=== PATIENT | female | born 1945 | race Caucasian/White ===

== ENCOUNTER → 2017-10-06 | Outpatient (CLI) | payer BC | END | disposition home or self-care (01) | LOC: C.PAPS 09:48 | PROVIDERS: ATTEND Obstetrics & Gynecology | DX: Z12.4 Encounter for screening for malignant neoplasm of cervix (principal) ==

== ENCOUNTER 2022-12-06 13:04 | Inpatient (IN) ==
[2022-12-06 16:13] LABS: Hematocrit (blood only) 38.9 % (37.0-47.0); Hemoglobin 13.8 g/dl (12.0-16.0); Mean Corpuscular Hemoglobin 30.5 pg (25.0-34.0); Mean Corpuscular Hgb Conc 35.5 g/dL (32.0-36.0); Mean Corpuscular Volume 86.1 fL (80.0-100.0); Mean Platelet Volume 10.3 fL (9.4-12.4); Platelet Count 128 K/uL (130-400); RDW Coefficient of Variation 11.6 % (11.5-14.5); RDW Standard Deviation 36.1 fL (36.4-46.3); Red Blood Count 4.52 M/uL (4.20-5.40); White Blood Count 4.37 K/ul (4.8-10.8)
--- NOTE | 2022-12-06 16:20 | CT Scan Report ---
CT SCAN OF THE BRAIN WITHOUT IV CONTRAST CLINICAL HISTORY: Fall. Head injury. COMPARISON STUDY: No priors. TECHNIQUE: Unenhanced axial CT scan of the brain is performed from the vertex to the skull base. A do se lowering technique was utilized adhering to the principles of ALARA. CT DOSE: 614.27 mGy.cm FINDINGS: Brain parenchyma: There is age-related involutional change noting moderate to advanced subcortical an d periventricular microangiopathic disease. There is no hemorrhage, mass effect, or evidence of acute territorial ischemia by CT criteria. Taylor-white matter differentiation is preserved. No extra-axial fluid collection is seen. Ventricles, sulci, cisterns: Prominent secondary to involutional change. Intracranial vasculature: There is atherosclerotic calcification of the cavernous carotid and vertebr al arteries. Calvarium: The skeletal structures are osteopenic. No depressed skull fracture is seen. Sinuses and mastoids: The visualized paranasal sinuses are clear. The mastoid air cells are well pneu matized. Orbits: The bony orbits are grossly intact. IMPRESSION: There is no hemorrhage, mass effect, or evidence of acute territorial ischemia by CT alyse haas. ACT 112: Negative or not required by law. Electronically signed by: Quintin Chauhan M.D. 12/06/2022 4:19 PM
[2022-12-06 16:24] LABS: Albumin Globulin Ratio 1.1 (0.9-2); Albumin Level 3.8 gm/dl (3.4-5.0); BUN Creatinine Ratio 29.5 (10-20); Bilirubin,Total 0.6 mg/dl (0.2-1.0); Calcium 8.5 mg/dl (8.6-10.3); Creatinine Clr Calc Pharmacy 69.1 ml/min; Est GFR (African American) 100.6 ml/min; Est GFR (Non-African American) 86.8 ml/min; Globulin 3.4 gm/dl (2.5-4.0); Potassium 3.3 mmol/L (3.5-5.1); Total Protein 7.2 gm/dl (6.0-8.3)
[2022-12-06 16:29] LABS: Basophils # (auto) 0.02 K/uL (0-0.2); Basophils % (auto) 0.5 %; Immature Granulocytes # (auto) 0.02 K/uL (0.01-0.20); Immature Granulocytes % (auto) 0.5 %; Lymphocytes # (auto) 0.27 K/uL (1.2-3.4); Lymphocytes % (auto) 6.2 %; Monocytes % (auto) 2.3 %; Neutrophils # (auto) 3.96 K/uL (1.40-6.50); Neutrophils % (auto) 90.5 %
[2022-12-06 16:30] LABS: Troponin I High Sensitivity 8.4 pg/ml (0-14)
[2022-12-06 16:35] LABS: INR 1.1 (0.9-1.1); Partial Thromboplastin Time 29.6 Seconds (21.0-31.0); Prothrombin Time 12.2 Seconds (9.0-12.0)
[2022-12-06 17:00] LABS: Appearance Urine Clear (Clear); Bacteria Urine Automated Negative (Negative); Blood Urine 1+ (Negative); Color Urine Dark Yellow; Epithelial Cell Urine Auto >30 /lpf (0-5); Glucose Urine UA Negative (Negative); Ketones Urine 1+ (Negative); Leukocyte Esterase Urine Trace (Negative); Nitrite Urine Negative (Negative); Protein Urine 3+ (Negative); Specific Gravity Urine 1.031 (1.000-1.030); Urobilinogen Urine Negative (Negative)
[2022-12-06 17:28] LABS: Bilirubin Urine 1+ (Negative)
[2022-12-06 17:30] LABS: Adenovirus PCR Not Detected (NotDetected); Bordetella parapertussis PCR Not Detected (NotDetected); Bordetella pertussis PCR Not Detected (NotDetected); Chlamydia pneumoniae PCR Not Detected (NotDetected); Coronavirus 229E PCR Not Detected (NotDetected); Coronavirus CoV-2 (COVID19)PCR Not Detected (NotDetected); Coronavirus HKU1 PCR Not Detected (NotDetected); Coronavirus NL63 PCR Not Detected (NotDetected); Coronavirus OC43PCR Not Detected (NotDetected); Human Metapneumovirus PCR Not Detected (NotDetected); Influenza A PCR Not Detected (NotDetected); Influenza B PCR Not Detected (NotDetected); Mycoplasma pneumoniae PCR Not Detected (NotDetected); Parainfluenza Virus 1 PCR Not Detected (NotDetected); Parainfluenza Virus 2 PCR Not Detected (NotDetected); Parainfluenza Virus 3 PCR Not Detected (NotDetected); Parainfluenza Virus 4 PCR Not Detected (NotDetected); Respiratory Syncytial VirusPCR Not Detected (NotDetected); Rhinovirus/Enterovirus PCR Not Detected (NotDetected)
[2022-12-06] MEDS ORDERED: SODIUM CHLORIDE 0.9% 500 ML IV ONE (17:33)
[2022-12-06] MEDS ORDERED: SODIUM CHLORIDE 0.9% 1000ML 1,000 ML IV SCH (17:45)
[2022-12-06] MEDS ORDERED: cefTRIAXone SODIUM 1,000 MG in DEXTROSE 5% AD-VAN 50 ML IV STA (17:50)
--- NOTE | 2022-12-06 17:57 | History & Physical Report ---
Date of Service December 06, 2022 Assessment & Plan (1) Generalized weakness: Plan: -Admit to med/surge -The patient is currently afebrile, hemodynamically stable, and stable on RA -The patient started to develop generalized weakness and poor oral intake approximately 2 days ago -At this time the exact etiology of her generalized weakness is unclear but the differential includes but is not limited to acute hyponatremia, viral/bacterial infection, tick borne illness, dehydration -CXR was negative for signs of PNA, mild leukopenia at 4.37, lower suspicion for bacterial infection at this time but will obtain blood cultures, tick borne panels, procal, CRP, for further evaluation -TSH WNL, UA is equivocal at this time, but the patient is without dysuria or increased urinary frequency, not convinced she has a UTI at this time -We have no previous records so unsure how long her hyponatremia has been evolving, this is at least partly contributing to her weakness -Will hold additional abx at this time, follow additional workup and monitor for fever -BL SCD's for DVT PPX tonight, will hold chemical PPX tonight due to recent trauma -AM CBC, CMP, Mag, PT/INR (2) Hyponatremia: Plan: -Noted to be 125 today -Patient is not on diuretics and has been having poor oral intake over the past 3 days, likely due to poor oral intake -Serum osmolality, urine osmolality, and random urine sodium in process -S/P 1.5 L NSS in the ED, will hold additional IV fluids until the rest of her hyponatremia workup results -For now will start a free water restriction and 1800 mL fluid restriction -Will repeat a sodium level later tonight to monitor for adequate correction (3) Fall: Plan: -The patient fell out of bed this am trying to reach for juice, she did hit her head but did not lose consciousness, is not on AC -No other acute trauma on exam -Fall precautions and PT/OT conuslts ordered (4) Thrombocytopenia: Plan: -Noted to be 128 today -Does not appear to have a previous history -No signs of bleeding or non-traumatic bruising at this time -Continue to monitor admission workup and follow repeat CMP tomorrow (5) Hypokalemia: Plan: -Noted to be 3.3 today, no acute ECG changes -Mag at 2.0 -Likely due to poor oral intake -Ordered 2 bags of 10 meq IV KCL in the ED, about to be started -Monitor am potassium level (6) Elevated LFTs: Plan: -AST noted to be 52 today, no abd pain -Continue initial workup and monitor repeat CMP tomorrow (7) Bruise of face: Plan: -Sustained on fall this am -CT of the head is negative for acute trauma -No other acute trauma -PRN tylenol for pain Plan The patient was discussed with Dr. Zuleta at the time of the admission History of Present Illness Chief Complaint: Ambulatory dysfunction, fall Primary Care Provider: João Cuevas Whit is a 77 year old female with a PMH significant for vit D deficiency who presented to the [facility] ED on 12/06/22 with a complaints of generalized weakness, ambulatory dysfunction, and fall. In the ED the patient was noted to be afebrile, hemodynamically stable, and stable on RA. Labs were remarkable for a platelet count of 128, lymphocyte count of 0.27, sodium of 125, potassium of 3.3, chloride of 92, mag of 2.0, AST of 52, full respiratory biofire negative, and UA equivocal for infection. Prior to admission the patient was given 1.5 L NSS, a dose of Ceftriaxone, and was ordered 2 bags of IV KCL. At the time of the exam the patient was lying in bed in no acute distress with her sitting bedside, history was obtained from both. They state that the patient was in her normal state of health earlier in the week. They visited some friends in [facility] over the weekend, none of which had an acute illness. They came back home and she was doing well on Friday and Friday, they even went on a brisk 1 mile walk on Friday without issue. Starting on Friday the patient began to develop generalized weakness and poor appetite. She had has very little to eat over this time but was able to drink water consistently. Her states that he noticed she was more SOB with exertion, such as walking up steps over the past few days. This am the patient was lying in bed and attempted to reach for some juice on her bedside table, she accide ntally rolled out of bed, hitting her left cheek and fight forehead. She denies losing consciousness and is not on anticoagulation. She was too weak to get herself up, her had to help her. She denies a previous history of electrolyte abnormalities and is on no prescription medications at this time. She denies noticing any insect bites recently. We discussed code status, she is a Full code and would want her (Collin Perez (C) [phone], (H) [phone]) to make medical decisions for her if she cannot make them herself. Please refer to Dr. Zuleta's attestation for any changes to the treatment plan. Allergies Allergy/AdvReac Type Severity Reaction Status Date / Time Sulfa (Sulfonamide AdvReac Severe TURNED THE Verified 12/06/22 17:48 Antibiotics) WHITES OF EYES YELLOW. Home Medications Medication Instructions Recorded Confirmed Type calcium carbonate 600 mg-vitamin 1 tab PO DAILY 12/06/22 12/06/22 History D3 10 mcg (400 unit) tablet (Calcium 600 + D(3)) multivitamin 1 tab PO DAILY 12/06/22 12/06/22 History turmeric 400 mg capsule 400 mg PO DAILY 12/06/22 12/06/22 History Past Med/Surg History Social History Smoking Status: Former smoker Second Hand Exposure: Yes (Parents); Do You Dip or Chew Tobacco: No; Tobacco Cessation Education Requested by Patient: No Hx Alcohol Use: Yes Alcohol type: wine Hx Substance Use: No Preferred Language: Afghan Communication Ability: Effective Supervisor Wet Room Required: No Beliefs That Will Affect Care: None Current Living Situation: Spouse Other Information That Helps Us Care for You: No Feels Safe at Home: Yes Safety Concerns: Feels Safe At This Time Physical Exam Physical Exam: Physical Exam: General: In no acute distress, stated age, ill but non-toxic appearing HEENT: Normocephalic, patient with small bruises on the left cheek and right forehead, no scleral icterus, pupils around round, symmetrical, and reactive to light, dry mucus membranes, trachea midline, no thyromegaly Chest/Pulm: No respiratory distress, symmetrical chest expansion, clear breath sounds throughout Cardiac: RRR, no murmurs noted Abdomen: Negative for ascites and bruising, normoactive bowel sounds, soft, non-tender to palpation throughout Musculoskeletal: No tenderness to palpation over the skull, tenderness to palpation over the left maxillary sinus/cheek but no crepitus noted, no tenderness to palpation over the cervical, thoracic, or lumbar spine, upper and lower extremities with full ROM, no atrophy, spasticity, or flaccidity Extremities: Radial, dorsalis pedis, and posterior tibial pulses are intact and symmetrical, no edema noted in the BL LE's Skin: As described above Neuro: Alert and oriented to person, place, month, year, and president, no focal defects, CN II-XII tested and intact, no tremors noted Psych: No acute distress, calm and cooperative during the exam Results & Data Results & Data Vital Signs (Past 12 Hours) Vital Signs Temp Pulse Resp BP Pulse Ox O2 Del Method 12/06/22 17:00 84 29 H 12/06/22 17:00 146/86 H 12/06/22 16:50 89 12/06/22 16:40 90 12/06/22 16:30 88 12/06/22 16:30 157/99 H 12/06/22 16:20 94 H 12/06/22 16:17 96 H 21 93 12/06/22 16:00 98 H 94 12/06/22 15:50 99 H 94 12/06/22 15:40 93 H 94 12/06/22 15:30 100 H 95 12/06/22 15:20 92 H 96 12/06/22 15:19 100 H 12/06/22 13:16 37 C 98 H 20 137/94 95 Room Air Laboratory Results Abnormal lab results 12/06/22 12/06/22 12/06/22 Range/Units 15:44 15:44 15:44 WBC 4.37 L (4.8-10.8) K/ul RDW Std Deviation 36.1 L (36.4-46.3) fL Plt Count 128 L (130-400) K/uL Lymph # (Auto) 0.27 L (1.2-3.4) K/uL [place] # (Auto) 0.10 L (0.11-0.59) K/uL PT 12.2 H (9.0-12.0) Seconds Sodium 125 L (136-145) mmol/L Potassium 3.3 L (3.5-5.1) mmol/L Chloride 92 L (98-107) mmol/L BUN/Creatinine Ratio 29.5 H (10-20) Glucose 142 H (70-99(Fasting)) mg/dl Calcium 8.5 L (8.6-10.3) mg/dl AST 52 H (13-39) U/L Ur Specific [place] (1.000-1.030) Urine Protein (Negative) Urine Ketones (Negative) Urine Blood (Negative) Urine Bilirubin (Negative) Ur Leukocyte Esterase (Negative) Urine WBC (Auto) (0-5) /hpf Urine RBC (Auto) (0-4) /hpf U Hyaline Cast (Auto) (0-5) /lpf U Epithel Cells (Auto) (0-5) /lpf 12/06/22 Range/Units 16:35 WBC (4.8-10.8) K/ul RDW Std Deviation (36.4-46.3) fL Plt Count (130-400) K/uL Lymph # (Auto) (1.2-3.4) K/uL [place] # (Auto) (0.11-0.59) K/uL PT (9.0-12.0) Seconds Sodium (136-145) mmol/L Potassium (3.5-5.1) mmol/L Chloride (98-107) mmol/L BUN/Creatinine Ratio (10-20) Glucose (70-99(Fasting)) mg/dl Calcium (8.6-10.3) mg/dl AST (13-39) U/L Ur Specific [place] 1.031 H (1.000-1.030) Urine Protein 3+ H (Negative) Urine Ketones 1+ H (Negative) Urine Blood 1+ H (Negative) Urine Bilirubin 1+ H (Negative) Ur Leukocyte Esterase Trace H (Negative) Urine WBC (Auto) 10-30 H (0-5) /hpf Urine RBC (Auto) 10-30 H (0-4) /hpf U Hyaline Cast (Auto) 5-10 H (0-5) /lpf U Epithel Cells (Auto) >30 H (0-5) /lpf Diagnostic Findings Head CT 12/06/22 13:33 CT SCAN OF THE BRAIN WITHOUT IV CONTRAST CLINICAL HISTORY: Fall. Head injury. COMPARISON STUDY: No priors. TECHNIQUE: Unenhanced axial CT scan of the brain is performed from the vertex to the skull base. A dose lowering technique was utilized adhering to the principles of ALARA. 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 There is no hemorrhage, mass effect, or evidence of acute territorial ischemia by CT criteria. Taylor-white matter differentiation is preserved. No extra-axial fluid collection is seen. Ventricles, sulci, cisterns: Prominent secondary to involutional change. Intracranial vasculature: There is atherosclerotic calcification of the cavernous carotid and vertebral arteries. Calvarium: The skeletal structures are osteopenic. No depressed skull fracture is seen. Sinuses and mastoids: The visualized paranasal sinuses are clear. The mastoid air cells are well pneumatized. Orbits: The bony orbits are grossly intact. IMPRESSION: There is no hemorrhage, mass effect, or evidence of acute territorial ischemia by CT criteria. ACT 112: Negative or not required by law. Electronically signed by: Quintin Chauhan M.D. 12/06/2022 4:19 PM Chest X-Ray 12/06/22 17:40 SINGLE VIEW CHEST CLINICAL HISTORY: Tachypnea. FINDINGS: An AP, portable, upright chest radiograph is obtained. No prior studies are available for comparison at the time of dictation. The heart is mildly enlarged. The pulmonary stature is noncongested. Nonspecific interstitial thickening is likely chronic. The lungs and pleural spaces are clear noting dependent atelectasis. No pneumothorax is seen. The skeletal structures are osteopenic. The bony thorax is grossly intact. IMPRESSION: No active disease in the chest. ACT 112: Negative or not required by law. Electronically signed by: Quintin Chauhan M.D. 12/06/2022 6:16 PM ECG Additional Comments: Poor data quality, interpretation may be adversely affected Normal sinus rhythm Left axis deviation Abnormal ECG No previous ECGs available Confirmed by Marino Gunderson ([id number]) on 12/06/2022 6:13:59 PM Code Status & VTE Plan Code Status Full code VTE Prophylaxis Plan VTE Prophylaxis will be ordered: Yes Supervising Physician Co-Signing Physician Notes I personally saw and examined the patient. I verified all ames points and agree with Adam Houser PA-C with the following exceptions and/or additions: 77 year old female presents to the ER with generalized weakness. O/E A&Ox3, HS RRR, no murmurs, Chest CTAB, Abdo SNT, no CVA tenderness, CN 2-> 12 intact, no extremity weakness or change in sensation A/P Generalized weakness - sudden acute worsening generalized weakness without myalgia. Infection would be the diagnosis of exclusion but no particular source from symptoms or signs on admission. Does not appear meningitic and low suspicion of meningitis on exam. Thrombocytopenia and mild AST suggests possible tick borne illness with labs currently pending for this. Procalcitonin mildly elevated. She does not meet criteria for sepsis and is not septic appearing therefore will defer very broad spectrum antibiotics given lack of a source. She has already had a dose of ceftriaxone to cover for UTI although no clear sy mptoms of this or bacteria on microscopy. Will await blood and urine cultures. Nausea and Vomiting actually improved without diarrhea or abdominal pain therefore CT A/P deferred but if getting worse without clear source would consider this. Acute hyponatremia - hypovolemic on exam. Suspect due to vomiting and poor oral intake, urine osm and Na confirming this. Improving with NSS, continue to trend. Do not suspect this is the cause of her generalized weakness, more likely result of. PG Care Time/CCT Total # of Minutes Spent Total Time Spent with Patient: Total time spent is greater than 50% in coordination of care (as documented) at patient's floor/unit and/or counseling patient: Coding [place] [address] INT INP/OBS CARE 3/75MIN Patient Type Established Medical Decision Making High Complexity Diagnoses Generalized weakness R53.1 Hyponatremia E87.1 Fall W19.XXXA Thrombocytopenia D69.6 Hypokalemia E87.6 Elevated LFTs R79.89 Bruise of face S00.83XA
--- NOTE | 2022-12-06 18:18 | XRay Report ---
SINGLE VIEW CHEST CLINICAL HISTORY: Tachypnea. FINDINGS: An AP, portable, upright chest radiograph is obtained. No prior studies are available for c omparison at the time of dictation. The heart is mildly enlarged. The pulmonary stature is noncongest ed. Nonspecific interstitial thickening is likely chronic. The lungs and pleural spaces are clear not ing dependent atelectasis. No pneumothorax is seen. The skeletal structures are osteopenic. The bony thorax is grossly intact. IMPRESSION: No active disease in the chest. ACT 112: Negative or not required by law. Electronically signed by: Quintin Chauhan M.D. 12/06/2022 6:16 PM
[2022-12-06] MEDS: POTASSIUM CHLORIDE / WTR 10 MEQ/100 ML PLCT IV SCH ×2 (18:35→20:18)
[2022-12-06 18:50] LABS: C Reactive Protein 17.8 mg/dl (0-0.5)
[2022-12-06] MEDS ORDERED: CLOTRIMAZOLE 1% CR 15 GM TUBE EXT PRN (19:25)
--- NOTE | 2022-12-06 19:49 | Emergency Department Note ---
Impression & Plan Hyponatremia, Fall, Generalized weakness, CHI (closed head injury) ED Provider Note CHIEF COMPLAINT: Fall HISTORY OF PRESENT ILLNESS: This 77-year-old female patient with no significant past medical history presents to the emergency department with complaints of a fall today with closed head injury. Patient states she has been ill for the last 2 to 3 days and laying in bed for the most part. She reached to grab a glass, dropped the glass and ended up falling to the floor, hitting her head on the hardwood. She does not take any blood thinners. REVIEW OF SYSTEMS: A review of systems was performed with positives and pertinent negatives listed in the history of present illness. 10 systems were reviewed and are otherwise negative. ALLERGIES: see below MEDICATIONS: see below PMH: see below SOCIAL HISTORY: see below DDx: Infection, dehydration, metabolic abnormality, hypo/hyperglycemia, electrolyte disturbance, anemia, hypoxia, cardiac sources, intracerebral event, toxicologic, neurologic, as well as other pathologies. PHYSICAL EXAM: Vital signs reviewed. General: Chronically ill-appearing 77 yo female, in no significant distress. Weak HEENT: No scleral icterus, PERRLA, neck supple. Atraumatic. Cardiovascular: Regular rate and rhythm, no extra sounds. Pulmonary: Clear to auscultation bilaterally, normal work of breathing. Abdomen: Soft, nontender, nondistended, positive bowel sounds. Musculoskeletal: Atraumatic, no peripheral edema. Neurologic: Patient awake alert and oriented x 3, speech is clear Skin: Warm, dry, no rash EMERGENCY DEPARTMENT COURSE/MDM: This patient was evaluated and appeared to be in no significant distress. IV access was obtained and laboratory work was drawn. Patient's vital signs have remained stable. Laboratory work reveals a hyponatremia. UA is contaminated but negative for infection. Patient was hydrated with normal saline solution. WBC is slightly low, troponin is negative. Chest x-ray reveals no focal lung consolidation or failure. Head CT is negative in the setting of a traumatic fall. Due to the several days in bed, weakness and now fall with hyponatremia, the patient's case was discussed with the hospitalist service who will evaluate the patient for further management. Patient and are aware of the plan and agree. MONITORING: An order for cardiac monitoring was placed and the patient is noted to be in a normal sinus rhythm at 87 beats per minute. RADIOLOGY: CT imaging of the head to my interpretation reveals no evidence of acute intracranial abnormality. Otherwise defer to radiology. Chest x-ray to my interpretation reveals no evidence of focal lung consolidation or failure. Otherwise defer to radiology. EKG: To my interpretation reveals normal sinus rhythm at 94 bpm. Left axis deviation. No PVC, no PAC. Normal ST segments. QTc is 440. No previous EKGs for comparison. DISPOSITION:Admit Past Med/Surg History Social History Smoking Status: Former smoker Second Hand Exposure: Yes (Parents); Hx Alcohol Use: Yes Alcohol type: wine Hx Substance Use: No Preferred Language: Japanese Communication Ability: Effective Checkroom Attendant Required: No Beliefs That Will Affect Care: None Current Living Situation: Spouse Feels Safe at Home: Yes Assistive Devices: None Allergies Allergies Allergy/AdvReac Type Severity Reaction Status Date / Time Sulfa (Sulfonamide AdvReac Severe TURNED THE Verified 12/06/22 17:48 Antibiotics) WHITES OF EYES YELLOW. Home Meds Home Medications Medication Instructions Recorded Confirmed multivitamin 1 tab PO DAILY 12/06/22 12/06/22 turmeric 400 mg capsule 400 mg PO DAILY 12/06/22 12/06/22 Previous Rx's Medication Instructions Recorded doxycycline hyclate 100 mg capsule 100 mg PO BID #16 caps 12/09/22 ergocalciferol (vitamin D2) 1,250 50,000 unit PO .weekly #6 caps 12/09/22 mcg (50,000 unit) capsule Results & Data (ED) Vital Signs Vital Signs - 24 hr 12/06/22 13:16 12/06/22 15:19 12/06/22 15:20 Temperature 37 C Temperature Source Temporal Artery Scan Pulse Rate 98 H 100 H 92 H Pulse Rhythm Regular Pulse Strength Normal Respiratory Rate 20 Respiratory Effort / Characteristics Non-Labored Spontaneous Respiratory Depth Normal Respiratory Pattern Regular Blood Pressure 137/94 Blood Pressure Mean 108 Blood Pressure Position Sitting Pulse Oximetry 95 96 Oxygen Delivery Method Room Air Sepsis Recent Fever Within 48 Hours No Sepsis New/Unexplained Change in Mental Status No Sepsis Action Taken by Nursing No Action Required 12/06/22 15:30 12/06/22 15:40 12/06/22 15:50 Temperature Temperature Source Pulse Rate 100 H 93 H 99 H Pulse Rhythm Pulse Strength Respiratory Rate Respiratory Effort / Characteristics Respiratory Depth Respiratory Pattern Blood Pressure Blood Pressure Mean Blood Pressure Position Pulse Oximetry 95 94 94 Oxygen Delivery Method Sepsis Recent Fever Within 48 Hours Sepsis New/Unexplained Change in Mental Status Sepsis Action Taken by Nursing 12/06/22 16:00 12/06/22 16:17 12/06/22 16:20 Temperature Temperature Source Pulse Rate 98 H 96 H 94 H Pulse Rhythm Pulse Strength Respiratory Rate 21 Respiratory Effort / Characteristics Respiratory Depth Respiratory Pattern Blood Pressure Blood Pressure Mean Blood Pressure Position Pulse Oximetry 94 93 Oxygen Delivery Method Sepsis Recent Fever Within 48 Hours Sepsis New/Unexplained Change in Mental Status Sepsis Action Taken by Nursing 12/06/22 16:30 12/06/22 16:30 12/06/22 16:40 Temperature Temperature Source Pulse Rate 88 90 Pulse Rhythm Pulse Strength Respiratory Rate Respiratory Effort / Characteristics Respiratory Depth Respiratory Pattern Blood Pressure 157/99 H Blood Pressure Mean 118 Blood Pressure Position Pulse Oximetry Oxygen Delivery Method Sepsis Recent Fever Within 48 Hours Sepsis New/Unexplained Change in Mental Status Sepsis Action Taken by Nursing 12/06/22 16:50 12/06/22 17:00 12/06/22 17:00 Temperature Temperature Source Pulse Rate 89 84 Pulse Rhythm Pulse Strength Respiratory Rate 29 H Respiratory Effort / Characteristics Respiratory Depth Respiratory Pattern Blood Pressure 146/86 H Blood Pressure Mean 106 Blood Pressure Position Pulse Oximetry Oxygen Delivery Method Sepsis Recent Fever Within 48 Hours Sepsis New/Unexplained Change in Mental Status Sepsis Action Taken by Assisted Medications Current Medication List: was personally reviewed by me Laboratory Data Attestation: I reviewed the patient's lab results. 12/06/22 15:44 12/06/22 15:44 Lab Results 12/06/22 12/06/22 12/06/22 Range/Units 15:44 15:44 15:44 WBC 4.37 L (4.8-10.8) K/ul RBC 4.52 (4.20-5.40) M/uL Hgb 13.8 (12.0-16.0) g/dl Hct 38.9 (37.0-47.0) % MCV 86.1 (80.0-100.0) fL MCH 30.5 (25.0-34.0) pg MCHC 35.5 (32.0-36.0) g/dL RDW Std Deviation 36.1 L (36.4-46.3) fL RDW Coeff of Gadiel 11.6 (11.5-14.5) % Plt Count 128 L (130-400) K/uL MPV 10.3 (9.4-12.4) fL Immature Gran % (Auto) 0.5 % Neut % (Auto) 90.5 % Lymph % (Auto) 6.2 % [place] % (Auto) 2.3 % Eos % (Auto) 0.0 % Baso % (Auto) 0.5 % Neut # (Auto) 3.96 (1.40-6.50) K/uL Lymph # (Auto) 0.27 L (1.2-3.4) K/uL [place] # (Auto) 0.10 L (0.11-0.59) K/uL Eos # (Auto) 0.00 (0-0.50) K/uL Baso # (Auto) 0.02 (0-0.2) K/uL Immature Gran # (Auto) 0.02 (0.01-0.20) K/uL ESR (0-30) mm/hr PT 12.2 H (9.0-12.0) Seconds INR 1.1 (0.9-1.1) APTT 29.6 (21.0-31.0) Seconds PTT Ratio 1.0 Sodium 125 L (136-145) mmol/L Potassium 3.3 L (3.5-5.1) mmol/L Chloride 92 L (98-107) mmol/L Carbon Dioxide 25 (21-32) mmol/L Anion Gap 8 (3-11) BUN 18 (6-23) mg/dl Creatinine 0.61 (0.6-1.2) mg/dl Est Cr Clr Drug Dosing 69.1 ml/min Est GFR ( Amer) 100.6 ml/min Est GFR (Non-Af Amer) 86.8 ml/min BUN/Creatinine Ratio 29.5 H (10-20) Glucose 142 H (70-99(Fasting)) mg/dl Osmolality (280-300) mOsm/kg Calcium 8.5 L (8.6-10.3) mg/dl Magnesium 2.0 (1.7-2.4) mg/dl Total Bilirubin 0.6 (0.2-1.0) mg/dl AST 52 H (13-39) U/L ALT 44 (7-52) U/L Alkaline Phosphatase 83 (34-104) U/L Troponin I High Sens 8.4 (0-14) pg/ml C-Reactive Protein 17.80 H (0-0.5) mg/dl Total Protein 7.2 (6.0-8.3) gm/dl Albumin 3.8 (3.4-5.0) gm/dl Globulin 3.4 (2.5-4.0) gm/dl Albumin/Globulin Ratio 1.1 (0.9-2) TSH (0.300-4.500) uIu/ml Random Cortisol mcg/dl Urine Color Urine Appearance (Clear) Urine pH (4.5-7.5) Ur Specific [place] (1.000-1.030) Urine Protein (Negative) Urine Glucose (UA) (Negative) Urine Ketones (Negative) Urine Blood (Negative) Urine Nitrite (Negative) Urine Bilirubin (Negative) Urine Urobilinogen (Negative) Ur Leukocyte Esterase (Negative) Urine WBC (Auto) (0-5) /hpf Urine RBC (Auto) (0-4) /hpf U Hyaline Cast (Auto) (0-5) /lpf U Epithel Cells (Auto) (0-5) /lpf Urine Bacteria (Auto) (Negative) Urine Osmolality (500-800) mOsm/kg Ur Random Sodium mmol/L Adenovirus (PCR) (NotDetected) B. pertussis DNA (PCR) (NotDetected) B.parapertussis DNA PCR (NotDetected) C. pneumoniae DNA (PCR) (NotDetected) Coronavirus OC43 (PCR) (NotDetected) Coronavirus HKU1 (PCR) (NotDetected) Coronavirus 229E (PCR) (NotDetected) SARS-CoV-2 (PCR) (NotDetected) Coronavirus NL63 (PCR) (NotDetected) Human Metapneumovir PCR (NotDetected) Influenza Type A (PCR) (NotDetected) Influenza Type B (PCR) (NotDetected) M. pneumoniae (PCR) (NotDetected) Parainfluenza 1 (PCR) (NotDetected) Parainfluenza 2 (PCR) (NotDetected) Parainfluenza 3 (PCR) (NotDetected) Parainfluenza 4 (PCR) (NotDetected) RSV (PCR) (NotDetected) Entero/Rhino (PCR) (NotDetected) 12/06/22 12/06/22 12/06/22 Range/Units 15:44 15:44 15:44 WBC (4.8-10.8) K/ul RBC (4.20-5.40) M/uL Hgb (12.0-16.0) g/dl Hct (37.0-47.0) % MCV (80.0-100.0) fL MCH (25.0-34.0) pg MCHC (32.0-36.0) g/dL RDW Std Deviation (36.4-46.3) fL RDW Coeff of Gadiel (11.5-14.5) % Plt Count (130-400) K/uL MPV (9.4-12.4) fL Immature Gran % (Auto) % Neut % (Auto) % Lymph % (Auto) % [place] % (Auto) % Eos % (Auto) % Baso % (Auto) % Neut # (Auto) (1.40-6.50) K/uL Lymph # (Auto) (1.2-3.4) K/uL [place] # (Auto) (0.11-0.59) K/uL Eos # (Auto) (0-0.50) K/uL Baso # (Auto) (0-0.2) K/uL Immature Gran # (Auto) (0.01-0.20) K/uL ESR (0-30) mm/hr PT (9.0-12.0) Seconds INR (0.9-1.1) APTT (21.0-31.0) Seconds PTT Ratio Sodium (136-145) mmol/L Potassium (3.5-5.1) mmol/L Chloride (98-107) mmol/L Carbon Dioxide (21-32) mmol/L Anion Gap (3-11) BUN (6-23) mg/dl Creatinine (0.6-1.2) mg/dl Est Cr Clr Drug Dosing ml/min Est GFR ( Amer) ml/min Est GFR (Non-Af Amer) ml/min BUN/Creatinine Ratio (10-20) Glucose (70-99(Fasting)) mg/dl Osmolality 267 L (280-300) mOsm/kg Calcium (8.6-10.3) mg/dl Magnesium (1.7-2.4) mg/dl Total Bilirubin (0.2-1.0) mg/dl AST (13-39) U/L ALT (7-52) U/L Alkaline Phosphatase (34-104) U/L Troponin I High Sens (0-14) pg/ml C-Reactive Protein (0-0.5) mg/dl Total Protein (6.0-8.3) gm/dl Albumin (3.4-5.0) gm/dl Globulin (2.5-4.0) gm/dl Albumin/Globulin Ratio (0.9-2) TSH 0.675 (0.300-4.500) uIu/ml Random Cortisol 34.58 mcg/dl Urine Color Urine Appearance (Clear) Urine pH (4.5-7.5) Ur Specific [place] (1.000-1.030) Urine Protein (Negative) Urine Glucose (UA) (Negative) Urine Ketones (Negative) Urine Blood (Negative) Urine Nitrite (Negative) Urine Bilirubin (Negative) Urine Urobilinogen (Negative) Ur Leukocyte Esterase (Negative) Urine WBC (Auto) (0-5) /hpf Urine RBC (Auto) (0-4) /hpf U Hyaline Cast (Auto) (0-5) /lpf U Epithel Cells (Auto) (0-5) /lpf Urine Bacteria (Auto) (Negative) Urine Osmolality (500-800) mOsm/kg Ur Random Sodium mmol/L Adenovirus (PCR) (NotDetected) B. pertussis DNA (PCR) (NotDetected) B.parapertussis DNA PCR (NotDetected) C. pneumoniae DNA (PCR) (NotDetected) Coronavirus OC43 (PCR) (NotDetected) Coronavirus HKU1 (PCR) (NotDetected) Coronavirus 229E (PCR) (NotDetected) SARS-CoV-2 (PCR) (NotDetected) Coronavirus NL63 (PCR) (NotDetected) Human Metapneumovir PCR (NotDetected) Influenza Type A (PCR) (NotDetected) Influenza Type B (PCR) (NotDetected) M. pneumoniae (PCR) (NotDetected) Parainfluenza 1 (PCR) (NotDetected) Parainfluenza 2 (PCR) (NotDetected) Parainfluenza 3 (PCR) (NotDetected) Parainfluenza 4 (PCR) (NotDetected) RSV (PCR) (NotDetected) Entero/Rhino (PCR) (NotDetected) 12/06/22 12/06/22 12/06/22 Range/Units 15:44 16:20 16:35 WBC (4.8-10.8) K/ul RBC (4.20-5.40) M/uL Hgb (12.0-16.0) g/dl Hct (37.0-47.0) % MCV (80.0-100.0) fL MCH (25.0-34.0) pg MCHC (32.0-36.0) g/dL RDW Std Deviation (36.4-46.3) fL RDW Coeff of Gadiel (11.5-14.5) % Plt Count (130-400) K/uL MPV (9.4-12.4) fL Immature Gran % (Auto) % Neut % (Auto) % Lymph % (Auto) % [place] % (Auto) % Eos % (Auto) % Baso % (Auto) % Neut # (Auto) (1.40-6.50) K/uL Lymph # (Auto) (1.2-3.4) K/uL [place] # (Auto) (0.11-0.59) K/uL Eos # (Auto) (0-0.50) K/uL Baso # (Auto) (0-0.2) K/uL Immature Gran # (Auto) (0.01-0.20) K/uL ESR 38 H (0-30) mm/hr PT (9.0-12.0) Seconds INR (0.9-1.1) APTT (21.0-31.0) Seconds PTT Ratio Sodium (136-145) mmol/L Potassium (3.5-5.1) mmol/L Chloride (98-107) mmol/L Carbon Dioxide (21-32) mmol/L Anion Gap (3-11) BUN (6-23) mg/dl Creatinine (0.6-1.2) mg/dl Est Cr Clr Drug Dosing ml/min Est GFR ( Amer) ml/min Est GFR (Non-Af Amer) ml/min BUN/Creatinine Ratio (10-20) Glucose (70-99(Fasting)) mg/dl Osmolality (280-300) mOsm/kg Calcium (8.6-10.3) mg/dl Magnesium (1.7-2.4) mg/dl Total Bilirubin (0.2-1.0) mg/dl AST (13-39) U/L ALT (7-52) U/L Alkaline Phosphatase (34-104) U/L Troponin I High Sens (0-14) pg/ml C-Reactive Protein (0-0.5) mg/dl Total Protein (6.0-8.3) gm/dl Albumin (3.4-5.0) gm/dl Globulin (2.5-4.0) gm/dl Albumin/Globulin Ratio (0.9-2) TSH (0.300-4.500) uIu/ml Random Cortisol mcg/dl Urine Color Dark Yellow Urine Appearance Clear (Clear) Urine pH 6.0 (4.5-7.5) Ur Specific [place] 1.031 H (1.000-1.030) Urine Protein 3+ H (Negative) Urine Glucose (UA) Negative (Negative) Urine Ketones 1+ H (Negative) Urine Blood 1+ H (Negative) Urine Nitrite Negative (Negative) Urine Bilirubin 1+ H (Negative) Urine Urobilinogen Negative (Negative) Ur Leukocyte Esterase Trace H (Negative) Urine WBC (Auto) 10-30 H (0-5) /hpf Urine RBC (Auto) 10-30 H (0-4) /hpf U Hyaline Cast (Auto) 5-10 H (0-5) /lpf U Epithel Cells (Auto) >30 H (0-5) /lpf Urine Bacteria (Auto) Negative (Negative) Urine Osmolality (500-800) mOsm/kg Ur Random Sodium mmol/L Adenovirus (PCR) Not Detected (NotDetected) B. pertussis DNA (PCR) Not Detected (NotDetected) B.parapertussis DNA PCR Not Detected (NotDetected) C. pneumoniae DNA (PCR) Not Detected (NotDetected) Coronavirus OC43 (PCR) Not Detected (NotDetected) Coronavirus HKU1 (PCR) Not Detected (NotDetected) Coronavirus 229E (PCR) Not Detected (NotDetected) SARS-CoV-2 (PCR) Not Detected (NotDetected) Coronavirus NL63 (PCR) Not Detected (NotDetected) Human Metapneumovir PCR Not Detected (NotDetected) Influenza Type A (PCR) Not Detected (NotDetected) Influenza Type B (PCR) Not Detected (NotDetected) M. pneumoniae (PCR) Not Detected (NotDetected) Parainfluenza 1 (PCR) Not Detected (NotDetected) Parainfluenza 2 (PCR) Not Detected (NotDetected) Parainfluenza 3 (PCR) Not Detected (NotDetected) Parainfluenza 4 (PCR) Not Detected (NotDetected) RSV (PCR) Not Detected (NotDetected) Entero/Rhino (PCR) Not Detected (NotDetected) 12/06/22 12/06/22 Range/Units 16:35 16:35 WBC (4.8-10.8) K/ul RBC (4.20-5.40) M/uL Hgb (12.0-16.0) g/dl Hct (37.0-47.0) % MCV (80.0-100.0) fL MCH (25.0-34.0) pg MCHC (32.0-36.0) g/dL RDW Std Deviation (36.4-46.3) fL RDW Coeff of Gadiel (11.5-14.5) % Plt Count (130-400) K/uL MPV (9.4-12.4) fL Immature Gran % (Auto) % Neut % (Auto) % Lymph % (Auto) % [place] % (Auto) % Eos % (Auto) % Baso % (Auto) % Neut # (Auto) (1.40-6.50) K/uL Lymph # (Auto) (1.2-3.4) K/uL [place] # (Auto) (0.11-0.59) K/uL Eos # (Auto) (0-0.50) K/uL Baso # (Auto) (0-0.2) K/uL Immature Gran # (Auto) (0.01-0.20) K/uL ESR (0-30) mm/hr PT (9.0-12.0) Seconds INR (0.9-1.1) APTT (21.0-31.0) Seconds PTT Ratio Sodium (136-145) mmol/L Potassium (3.5-5.1) mmol/L Chloride (98-107) mmol/L Carbon Dioxide (21-32) mmol/L Anion Gap (3-11) BUN (6-23) mg/dl Creatinine (0.6-1.2) mg/dl Est Cr Clr Drug Dosing ml/min Est GFR ( Amer) ml/min Est GFR (Non-Af Amer) ml/min BUN/Creatinine Ratio (10-20) Glucose (70-99(Fasting)) mg/dl Osmolality (280-300) mOsm/kg Calcium (8.6-10.3) mg/dl Magnesium (1.7-2.4) mg/dl Total Bilirubin (0.2-1.0) mg/dl AST (13-39) U/L ALT (7-52) U/L Alkaline Phosphatase (34-104) U/L Troponin I High Sens (0-14) pg/ml C-Reactive Protein (0-0.5) mg/dl Total Protein (6.0-8.3) gm/dl Albumin (3.4-5.0) gm/dl Globulin (2.5-4.0) gm/dl Albumin/Globulin Ratio (0.9-2) TSH (0.300-4.500) uIu/ml Random Cortisol mcg/dl Urine Color Urine Appearance (Clear) Urine pH (4.5-7.5) Ur Specific [place] (1.000-1.030) Urine Protein (Negative) Urine Glucose (UA) (Negative) Urine Ketones (Negative) Urine Blood (Negative) Urine Nitrite (Negative) Urine Bilirubin (Negative) Urine Urobilinogen (Negative) Ur Leukocyte Esterase (Negative) Urine WBC (Auto) (0-5) /hpf Urine RBC (Auto) (0-4) /hpf U Hyaline Cast (Auto) (0-5) /lpf U Epithel Cells (Auto) (0-5) /lpf Urine Bacteria (Auto) (Negative) Urine Osmolality 841 H (500-800) mOsm/kg Ur Random Sodium 12 mmol/L Adenovirus (PCR) (NotDetected) B. pertussis DNA (PCR) (NotDetected) B.parapertussis DNA PCR (NotDetected) C. pneumoniae DNA (PCR) (NotDetected) Coronavirus OC43 (PCR) (NotDetected) Coronavirus HKU1 (PCR) (NotDetected) Coronavirus 229E (PCR) (NotDetected) SARS-CoV-2 (PCR) (NotDetected) Coronavirus NL63 (PCR) (NotDetected) Human Metapneumovir PCR (NotDetected) Influenza Type A (PCR) (NotDetected) Influenza Type B (PCR) (NotDetected) M. pneumoniae (PCR) (NotDetected) Parainfluenza 1 (PCR) (NotDetected) Parainfluenza 2 (PCR) (NotDetected) Parainfluenza 3 (PCR) (NotDetected) Parainfluenza 4 (PCR) (NotDetected) RSV (PCR) (NotDetected) Entero/Rhino (PCR) (NotDetected) Administered Medications Discontinued Medications Acetaminophen (Acetaminophen 325 Mg Tab) 650 mg PO Q4H PRN PRN Reason: Pain(1,2,3), fever, headache Stop: 01/05/23 23:00 Last Admin: 12/07/22 00:23 Dose: 650 mg Documented By: OSWALDO Doxycycline Hyclate (Doxycycline Hyclate 100 Mg Cap) 100 mg PO BID ADALBERTO Stop: 12/21/22 10:44 Last Admin: 12/09/22 08:29 Dose: 100 mg Documented By: Admin: 12/08/22 21:51 Dose: 100 mg Documented By: Admin: 12/08/22 08:54 Dose: 100 mg Documented By: Admin: 12/07/22 20:36 Dose: 100 mg Documented By: [id number] Admin: 12/07/22 11:29 Dose: 100 mg Documented By: HEMANT Ergocalciferol (Ergocalciferol 50,000 Units 1250 Mcg Cap) 50,000 units PO ONE ONE Stop: 12/08/22 09:32 Last Admin: 12/08/22 10:05 Dose: 50,000 units Documented By: HEMANT Hyaluronidase Human (Hyaluronidase Human 150 Unit/Ml Inj) 30 units SQ 2200,2201,2202,2203,2204 ADALBERTO Stop: 12/06/22 22:05 Last Admin: 12/06/22 21:54 Dose: 30 units Documented By: Admin: 12/06/22 21:54 Dose: 30 units Documented By: Admin: 12/06/22 21:53 Dose: 30 units Documented By: Admin: 12/06/22 21:53 Dose: 30 units Documented By: Admin: 12/06/22 21:53 Dose: 30 units Documented By: MEAGAN Sodium Chloride (Nss) 500 mls @ 999 mls/hr IV .Q31M ONE Stop: 12/06/22 18:03 Last Infusion: 12/06/22 19:11 Dose: 0 mls/hr Documented By: Admin: 12/06/22 18:34 Dose: 999 mls/hr Documented By: RUTH Sodium Chloride (Nss 1000ml) 1,000 mls @ 150 mls/hr IV .Q6H40M [facility] Stop: 01/05/23 17:44 Last Infusion: 12/07/22 00:28 Dose: 0 mls/hr Documented By: [facility] Admin: 12/06/22 18:34 Dose: 150 mls/hr Documented By: RUTH Potassium Chloride (K Simon / Wtr) 10 meq in 100 mls @ 100 mls/hr IV Q1H ADALBERTO; Protocol Stop: 12/06/22 19:44 Last Infusion: 12/07/22 00:28 Dose: 0 mls/hr Documented By: [facility] Admin: 12/06/22 20:18 Dose: 100 mls/hr Documented By: Infusion: 12/06/22 19:45 Dose: 0 mls/hr Documented By: Admin: 12/06/22 18:35 Dose: 100 mls/hr Documented By: RUTH Ceftriaxone Sodium 1,000 mg/ (Dextrose) 50 mls @ 100 mls/hr IV NOW STA Stop: 12/06/22 18:19 Last Infusion: 12/06/22 20:11 Dose: 0 mls/hr Documented By: Admin: 12/06/22 19:33 Dose: 100 mls/hr Documented By: MEAGAN Sodium Chloride (Nss 1000ml) 1,000 mls @ 150 mls/hr IV .Q6H40M ADALBERTO Stop: 12/07/22 15:08 Last Infusion: 12/07/22 15:15 Dose: 0 mls/hr Documented By: Infusion: 12/07/22 12:03 Dose: 150 mls/hr Documented By: Admin: 12/07/22 08:13 Dose: 100 mls/hr Documented By: Infusion: 12/07/22 07:54 Dose: 100 mls/hr Documented By: Admin: 12/06/22 21:54 Dose: 100 mls/hr Documented By: MEAGAN Potassium Phosphate 30 mmol/ (Sodium Chloride) 510 mls @ 88 mls/hr IV ONE ONE Stop: 12/07/22 21:47 Last Infusion: 12/08/22 00:40 Dose: 0 mls/hr Documented By: [id number] Admin: 12/07/22 17:04 Dose: 88 mls/hr Documented By: HEMANT Potassium Phosphate 9 mmol/ (Sodium Chloride) 253 mls @ 88 mls/hr IV TODAY@1000 ONE Stop: 12/08/22 12:52 Last Infusion: 12/08/22 13:07 Dose: 0 mls/hr Documented By: Admin: 12/08/22 10:08 Dose: 88 mls/hr Documented By: HEMANT Magnesium Oxide (Magnesium Oxide 400 Mg Tab) 400 mg PO NOW STA Stop: 12/07/22 15:44 Last Admin: 12/07/22 17:04 Dose: 400 mg Documented By: HEMANT Miscellaneous Information (Nursing To Pharmacy Communication) 1 each N/A TODAY ADALBERTO Stop: 01/06/23 05:44 Last Admin: 12/07/22 05:58 Dose: 1 each Documented By: OSWALDO Potassium Chloride (Potassium Chloride Crtab 20 Meq Tabcr) 40 meq PO NOW STA Stop: 12/07/22 10:29 Last Admin: 12/07/22 10:43 Dose: 40 meq Documented By: HEMANT Imaging Data Radiologist's Impression: Head CT 12/06/22 13:33 CT SCAN OF THE BRAIN WITHOUT IV CONTRAST CLINICAL HISTORY: Fall. Head injury. COMPARISON STUDY: No priors. TECHNIQUE: Unenhanced axial CT scan of the brain is performed from the vertex to the skull base. A dose lowering technique was utilized adhering to the principles of ALARA. 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 There is no hemorrhage, mass effect, or evidence of acute territorial ischemia by CT criteria. Taylor-white matter differentiation is preserved. No extra-axial fluid collection is seen. Ventricles, sulci, cisterns: Prominent secondary to involutional change. Intracranial vasculature: There is atherosclerotic calcification of the cavernous carotid and vertebral arteries. Calvarium: The skeletal structures are osteopenic. No depressed skull fracture is seen. Sinuses and mastoids: The visualized paranasal sinuses are clear. The mastoid air cells are well pneumatized. Orbits: The bony orbits are grossly intact. IMPRESSION: There is no hemorrhage, mass effect, or evidence of acute territorial ischemia by CT criteria. ACT 112: Negative or not required by law. Electronically signed by: Quintin Chauhan M.D. 12/06/2022 4:19 PM Chest X-Ray 12/06/22 17:40 SINGLE VIEW CHEST CLINICAL HISTORY: Tachypnea. FINDINGS: An AP, portable, upright chest radiograph is obtained. No prior studies are available for comparison at the time of dictation. The heart is mildly enlarged. The pulmonary stature is noncongested. Nonspecific interstitial thickening is likely chronic. The lungs and pleural spaces are clear noting dependent atelectasis. No pneumothorax is seen. The skeletal structures are osteopenic. The bony thorax is grossly intact. IMPRESSION: No active disease in the chest. ACT 112: Negative or not required by law. Electronically signed by: Quintin Chauhan M.D. 12/06/2022 6:16 PM Discharge Plan Visit Data Chief Complaint: Fall Stated Complaint: FALL, HEAD INJURY, REF BY DOC, CT SCAN REQUEST ED Provider: Lianet Panchal Discharge Problem: Hyponatremia, Fall, Generalized weakness, CHI (closed head injury) Patient Disposition: Admitted As Inpatient Discharge Instructions Interventions: ED Discharge Assessment Last Done: 12/06/22 23:26
[2022-12-06 19:53] LABS: Procalcitonin 1.14 ng/ml (0-0.5)
[2022-12-06 19:59] LABS: Lyme Ab IgG w/WB Rflx Negative (Negative); Lyme Ab IgM w/WB Rflx Negative (Negative)
--- NOTE | 2022-12-06 20:01 | Electrocardiogram Report ---
Test Reason : Blood Pressure : / mmHG Vent. Rate : 094 BPM Atrial Rate : 094 BPM P-R Int : 190 ms QRS Dur : 098 ms QT Int : 352 ms P-R-T Axes : 056 -33 071 degrees QTc Int : 440 ms Poor data quality, interpretation may be adversely affected Normal sinus rhythm Left axis deviation Abnormal ECG No previous ECGs available Confirmed by Marino Gunderson ([id number]) on 12/06/2022 6:13:59 PM Referred By: Confirmed By:Neymar Gunderson
[2022-12-06] MEDS: HYALURONIDASE HUMAN 150 UNIT/ML INJ SQ SCH ×2 (21:53→21:54)
[2022-12-06] MEDS: SODIUM CHLORIDE 0.9% 1000ML 1,000 ML IV SCH (21:54)
[2022-12-06] MEDS ORDERED: ACETAMINOPHEN 325 MG TAB PO PRN (23:01)
[2022-12-07] MEDS ORDERED: Nursing to Pharmacy Communication SCH (05:45)
[2022-12-07] MEDS: SODIUM CHLORIDE 0.9% 1000ML 1,000 ML IV SCH (08:13)
[2022-12-07 08:48] LABS: Anaplasmosis Smear(Rpt to DOH) Pos for Anaplasma
[2022-12-07 09:49] LABS: Hematocrit (blood only) 34.1 % (37.0-47.0); Hemoglobin 12.5 g/dl (12.0-16.0); Mean Corpuscular Hemoglobin 30.9 pg (25.0-34.0); Mean Corpuscular Hgb Conc 36.7 g/dL (32.0-36.0); Mean Corpuscular Volume 84.4 fL (80.0-100.0); Mean Platelet Volume 9.9 fL (9.4-12.4); Platelet Count 77 K/uL (130-400); RDW Coefficient of Variation 11.3 % (11.5-14.5); RDW Standard Deviation 34.9 fL (36.4-46.3); Red Blood Count 4.04 M/uL (4.20-5.40); White Blood Count 3.71 K/ul (4.8-10.8)
[2022-12-07 10:07] LABS: Albumin Globulin Ratio 1.2 (0.9-2); Albumin Level 3.4 gm/dl (3.4-5.0); BUN Creatinine Ratio 24.4 (10-20); Bilirubin,Total 0.5 mg/dl (0.2-1.0); Calcium 7.9 mg/dl (8.6-10.3); Est GFR (African American) 111.2 ml/min; Globulin 2.9 gm/dl (2.5-4.0); Magnesium 1.8 mg/dl (1.7-2.4); Potassium 3.3 mmol/L (3.5-5.1); Total Protein 6.3 gm/dl (6.0-8.3)
[2022-12-07] MEDS ORDERED: POTASSIUM CHLORIDE CRTAB 20 MEQ TABCR PO STA (10:28)
[2022-12-07 10:31] LABS: Basophils # (auto) 0.02 K/uL (0-0.2); Basophils % (auto) 0.5 %; Immature Granulocytes # (auto) 0.02 K/uL (0.01-0.20); Immature Granulocytes % (auto) 0.5 %; Lymphocytes % (auto) 5.4 %; Monocytes # (auto) 0.08 K/uL (0.11-0.59); Monocytes % (auto) 2.2 %; Neutrophils # (auto) 3.39 K/uL (1.40-6.50); Neutrophils % (auto) 91.4 %; Toxic Vacuolation 1+
--- NOTE | 2022-12-07 10:31 | Nephrology Consultation ---
Date of Consultation December 07, 2022 Assessment & Plan (1) Hyponatremia: Chronic, moderate. Symptoms of weakness and fatigue reported. Symptoms improving. Serum sodium increasing acceptably with isotonic fluid. Evidence of volume depletion. Tolerating therapy well. Uosm notably elevated on admission. Oral solute has been poor. Monitor for auto correction with solute replacement and improvement in volume status. IV NSS increased to 150 ml/hr. Document strict I/O's. Repeat serum sodium and potassium at 2:00 order. KCl 40 mEq PO now. Check magnesium and phosphorus with next labs. (2) Hypokalemia: Attributed to poor oral intake. Additional oral replacement ordered now. Check magnesium with next labs. (3) Generalized weakness: Findings suggestive of anaplasmosis. Urine culture pending. Ceftriaxone converted to doxycycline. Encourage out of bed and ambulating with RN. TSH and serum cortisol reassuring. History of Present Illness Reason for Consultation: Hyponatremia Requesting Physician: Fritz Pena Attending Physician: Fritz Pena History of Present Illness Mrs. Whit Montgomery is a 77 year-old female who presented to [facility] ED yesterday for evaluation of weakness and s/p fall with facial injury. Whit had fallen from bed and bruised her face on a bedside table. She reported progressive weakness at home, poor appetite, and increasing PEREYRA. Symptoms started ~Friday. No fevers or chills reported. No known sick contacts. History was obtained from the patient and her . Serum metabolic profile on admission demonstrating a hypokalemia and hyponatremia. Whit was admitted for medical management. She has received ~2 L of IV NSS and additional IV potassium replacement. Serum sodium improving from 125 to 128 mmol/L overnight. Serum creatinine normal. Potassium remains 3.3 mmol/L. Whit is non-oliguric. Urine with evidence of possible cystitis. Urine osmolality >800. Volume depleted on admission per history. No known prior history of dysnatremia. No medications taken at home. Urine culture pending. 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 LFTs mildly elevated and mild thrombocytopenia. Treatment with ceftriaxone provided. TSH 0.6. Cortisol 34.5. No diarrhea. No additional nausea or vomiting reported. Whit was seen and evaluated with her (Collin Montgomery) at the bedside. Allergies Allergy/AdvReac Type Severity Reaction Status Date / Time Sulfa (Sulfonamide AdvReac Severe TURNED THE Verified 12/06/22 17:48 Antibiotics) WHITES OF EYES YELLOW. Home Medications Medication Instructions Recorded Confirmed Type calcium carbonate 600 mg-vitamin 1 tab PO DAILY 12/06/22 12/06/22 History D3 10 mcg (400 unit) tablet (Calcium 600 + D(3)) multivitamin 1 tab PO DAILY 12/06/22 12/06/22 History turmeric 400 mg capsule 400 mg PO DAILY 12/06/22 12/06/22 History Patient History Social History Smoking Status: Former smoker Second Hand Exposure: Yes (Parents); Do You Dip or Chew Tobacco: No; Tobacco Cessation Education Requested by Patient: No Hx Alcohol Use: Yes Alcohol type: wine Hx Substance Use: No Preferred Language: Indonesian Communication Ability: Effective Main [employer] Required: No Beliefs That Will Affect Care: None Current Living Situation: Spouse Other Information That Helps Us Care for You: No Feels Safe at Home: Yes Safety Concerns: Feels Safe At This Time Review of Systems Review of Systems: All systems reviewed & are unremarkable except as noted in HPI & below Constitutional: + weakness Physical Exam 2 Constitutional: well developed and + thin; no acute distress Eyes: + anicteric sclerae; no corneal abnormality ENMT: Mouth: no oral mucosal abnormality and oral mucous membranes not dry Neck: normal visual inspection and trachea midline Respiratory: normal respiratory effort Auscultation: lungs clear to auscultation bilaterally Cardiovascular: Rate/Rhythm: regular rate Heart Sounds: normal S1 and normal S2 Extremities: no edema Musculoskeletal: Extremities: no cyanosis and no clubbing Skin: + turgor decreased and + jaundice Neurologic: Motor/Sensory: no tremor and no asterixis Psychiatric: Orientation: alert and oriented x 3 Results & Data Vital Signs (Past 12 Hours) Vital Signs Temp Pulse Pulse Resp BP BP Pulse Ox 12/07/22 08:00 37.3 C 89 18 174/97 H 93 12/07/22 07:44 84 12/07/22 04:00 36.2 C L 78 18 163/96 H 94 12/06/22 23:02 86 12/07/22 01:10 12/07/22 01:10 38.1 C H 81 18 161/96 H 94 12/06/22 23:01 38.1 C H 81 18 161/96 H 94 12/06/22 23:26 12/06/22 22:30 88 O2 Del Method 12/07/22 08:00 Room Air 12/07/22 07:44 12/07/22 04:00 Room Air 12/06/22 23:02 12/07/22 01:10 Room Air 12/07/22 01:10 Room Air 12/06/22 23:01 Room Air 12/06/22 23:26 Room Air 12/06/22 22:30 Laboratory Results Laboratory Results - last 24 hr 12/06/22 12/06/22 12/06/22 15:44 15:44 15:44 WBC 4.37 L RBC 4.52 Hgb 13.8 Hct 38.9 MCV 86.1 MCH 30.5 MCHC 35.5 RDW Std Deviation 36.1 L RDW Coeff of Gadiel 11.6 Plt Count 128 L MPV 10.3 Immature Gran % (Auto) 0.5 Neut % (Auto) 90.5 Lymph % (Auto) 6.2 [place] % (Auto) 2.3 Eos % (Auto) 0.0 Baso % (Auto) 0.5 Neut # (Auto) 3.96 Lymph # (Auto) 0.27 L [place] # (Auto) 0.10 L Eos # (Auto) 0.00 Baso # (Auto) 0.02 Immature Gran # (Auto) 0.02 Peripher Smr Path Cons ESR PT 12.2 H INR 1.1 APTT 29.6 PTT Ratio 1.0 Sodium 125 L Potassium 3.3 L Chloride 92 L Carbon Dioxide 25 Anion Gap 8 BUN 18 Creatinine 0.61 Est Cr Clr Drug Dosing 69.1 Est GFR ( Amer) 100.6 Est GFR (Non-Af Amer) 86.8 BUN/Creatinine Ratio 29.5 H Glucose 142 H Osmolality Calcium 8.5 L Magnesium 2.0 Total Bilirubin 0.6 AST 52 H ALT 44 Alkaline Phosphatase 83 Troponin I High Sens 8.4 C-Reactive Protein 17.80 H Total Protein 7.2 Albumin 3.8 Globulin 3.4 Albumin/Globulin Ratio 1.1 Procalcitonin TSH Random Cortisol Urine Color Urine Appearance Urine pH Ur Specific [place] Urine Protein Urine Glucose (UA) Urine Ketones Urine Blood Urine Nitrite Urine Bilirubin Urine Urobilinogen Ur Leukocyte Esterase Urine WBC (Auto) Urine RBC (Auto) U Hyaline Cast (Auto) U Epithel Cells (Auto) Urine Bacteria (Auto) Urine Osmolality Ur Random Sodium Adenovirus (PCR) Anaplasma Smear A. phagocytophilum DNA Anaplasma Comment Babesia Smear Babesia microti DNA PCR B. pertussis DNA (PCR) B.parapertussis DNA PCR Lyme Disease IgG Ab Lyme Disease IgM Ab C. pneumoniae DNA (PCR) Coronavirus OC43 (PCR) Coronavirus HKU1 (PCR) Coronavirus 229E (PCR) SARS-CoV-2 (PCR) Coronavirus NL63 (PCR) E.chaffeensis DNA (PCR) Human Metapneumovir PCR Influenza Type A (PCR) Influenza Type B (PCR) M. pneumoniae (PCR) Parainfluenza 1 (PCR) Parainfluenza 2 (PCR) Parainfluenza 3 (PCR) Parainfluenza 4 (PCR) Q Fever Phase I IgG Ab Q Fever Phase I IgM Ab Q Fever Phase II IgG Ab Q Fever Phase II IgM Ab RSV (PCR) Entero/Rhino (PCR) Rickettsia IgG Ab Rickettsia IgM Ab Typhus Fever IgG Ab Typhus Fever IgM Ab 12/06/22 12/06/22 12/06/22 15:44 15:44 15:44 WBC RBC Hgb Hct MCV MCH MCHC RDW Std Deviation RDW Coeff of Gadiel Plt Count MPV Immature Gran % (Auto) Neut % (Auto) Lymph % (Auto) [place] % (Auto) Eos % (Auto) Baso % (Auto) Neut # (Auto) Lymph # (Auto) [place] # (Auto) Eos # (Auto) Baso # (Auto) Immature Gran # (Auto) Peripher Smr Path Cons ESR PT INR APTT PTT Ratio Sodium Potassium Chloride Carbon Dioxide Anion Gap BUN Creatinine Est Cr Clr Drug Dosing Est GFR ( Amer) Est GFR (Non-Af Amer) BUN/Creatinine Ratio Glucose Osmolality 267 L Calcium Magnesium Total Bilirubin AST ALT Alkaline Phosphatase Troponin I High Sens C-Reactive Protein Total Protein Albumin Globulin Albumin/Globulin Ratio Procalcitonin TSH 0.675 Random Cortisol 34.58 Urine Color Urine Appearance Urine pH Ur Specific [place] Urine Protein Urine Glucose (UA) Urine Ketones Urine Blood Urine Nitrite Urine Bilirubin Urine Urobilinogen Ur Leukocyte Esterase Urine WBC (Auto) Urine RBC (Auto) U Hyaline Cast (Auto) U Epithel Cells (Auto) Urine Bacteria (Auto) Urine Osmolality Ur Random Sodium Adenovirus (PCR) Anaplasma Smear A. phagocytophilum DNA Anaplasma Comment Babesia Smear Babesia microti DNA PCR B. pertussis DNA (PCR) B.parapertussis DNA PCR Lyme Disease IgG Ab Lyme Disease IgM Ab C. pneumoniae DNA (PCR) Coronavirus OC43 (PCR) Coronavirus HKU1 (PCR) Coronavirus 229E (PCR) SARS-CoV-2 (PCR) Coronavirus NL63 (PCR) E.chaffeensis DNA (PCR) Human Metapneumovir PCR Influenza Type A (PCR) Influenza Type B (PCR) M. pneumoniae (PCR) Parainfluenza 1 (PCR) Parainfluenza 2 (PCR) Parainfluenza 3 (PCR) Parainfluenza 4 (PCR) Q Fever Phase I IgG Ab Q Fever Phase I IgM Ab Q Fever Phase II IgG Ab Q Fever Phase II IgM Ab RSV (PCR) Entero/Rhino (PCR) Rickettsia IgG Ab Rickettsia IgM Ab Typhus Fever IgG Ab Typhus Fever IgM Ab 12/06/22 12/06/22 12/06/22 15:44 16:20 16:35 WBC RBC Hgb Hct MCV MCH MCHC RDW Std Deviation RDW Coeff of Gadiel Plt Count MPV Immature Gran % (Auto) Neut % (Auto) Lymph % (Auto) [place] % (Auto) Eos % (Auto) Baso % (Auto) Neut # (Auto) Lymph # (Auto) [place] # (Auto) Eos # (Auto) Baso # (Auto) Immature Gran # (Auto) Peripher Smr Path Cons ESR 38 H PT INR APTT PTT Ratio Sodium Potassium Chloride Carbon Dioxide Anion Gap BUN Creatinine Est Cr Clr Drug Dosing Est GFR ( Amer) Est GFR (Non-Af Amer) BUN/Creatinine Ratio Glucose Osmolality Calcium Magnesium Total Bilirubin AST ALT Alkaline Phosphatase Troponin I High Sens C-Reactive Protein Total Protein Albumin Globulin Albumin/Globulin Ratio Procalcitonin TSH Random Cortisol Urine Color Dark Yellow Urine Appearance Clear Urine pH 6.0 Ur Specific [place] 1.031 H Urine Protein 3+ H Urine Glucose (UA) Negative Urine Ketones 1+ H Urine Blood 1+ H Urine Nitrite Negative Urine Bilirubin 1+ H Urine Urobilinogen Negative Ur Leukocyte Esterase Trace H Urine WBC (Auto) 10-30 H Urine RBC (Auto) 10-30 H U Hyaline Cast (Auto) 5-10 H U Epithel Cells (Auto) >30 H Urine Bacteria (Auto) Negative Urine Osmolality Ur Random Sodium Adenovirus (PCR) Not Detected Anaplasma Smear A. phagocytophilum DNA Anaplasma Comment Babesia Smear Babesia microti DNA PCR B. pertussis DNA (PCR) Not Detected B.parapertussis DNA PCR Not Detected Lyme Disease IgG Ab Lyme Disease IgM Ab C. pneumoniae DNA (PCR) Not Detected Coronavirus OC43 (PCR) Not Detected Coronavirus HKU1 (PCR) Not Detected Coronavirus 229E (PCR) Not Detected SARS-CoV-2 (PCR) Not Detected Coronavirus NL63 (PCR) Not Detected E.chaffeensis DNA (PCR) Human Metapneumovir PCR Not Detected Influenza Type A (PCR) Not Detected Influenza Type B (PCR) Not Detected M. pneumoniae (PCR) Not Detected Parainfluenza 1 (PCR) Not Detected Parainfluenza 2 (PCR) Not Detected Parainfluenza 3 (PCR) Not Detected Parainfluenza 4 (PCR) Not Detected Q Fever Phase I IgG Ab Q Fever Phase I IgM Ab Q Fever Phase II IgG Ab Q Fever Phase II IgM Ab RSV (PCR) Not Detected Entero/Rhino (PCR) Not Detected Rickettsia IgG Ab Rickettsia IgM Ab Typhus Fever IgG Ab Typhus Fever IgM Ab 12/06/22 12/06/22 12/06/22 16:35 16:35 19:01 WBC RBC Hgb Hct MCV MCH MCHC RDW Std Deviation RDW Coeff of Gadiel Plt Count MPV Immature Gran % (Auto) Neut % (Auto) Lymph % (Auto) [place] % (Auto) Eos % (Auto) Baso % (Auto) Neut # (Auto) Lymph # (Auto) [place] # (Auto) Eos # (Auto) Baso # (Auto) Immature Gran # (Auto) Peripher Smr Path Cons Pending ESR PT INR APTT PTT Ratio Sodium Potassium Chloride Carbon Dioxide Anion Gap BUN Creatinine Est Cr Clr Drug Dosing Est GFR ( Amer) Est GFR (Non-Af Amer) BUN/Creatinine Ratio Glucose Osmolality Calcium Magnesium Total Bilirubin AST ALT Alkaline Phosphatase Troponin I High Sens C-Reactive Protein Total Protein Albumin Globulin Albumin/Globulin Ratio Procalcitonin TSH Random Cortisol Urine Color Urine Appearance Urine pH Ur Specific [place] Urine Protein Urine Glucose (UA) Urine Ketones Urine Blood Urine Nitrite Urine Bilirubin Urine Urobilinogen Ur Leukocyte Esterase Urine WBC (Auto) Urine RBC (Auto) U Hyaline Cast (Auto) U Epithel Cells (Auto) Urine Bacteria (Auto) Urine Osmolality 841 H Ur Random Sodium 12 Adenovirus (PCR) Anaplasma Smear A. phagocytophilum DNA Anaplasma Comment Pos for Anaplasma Babesia Smear See Comment Babesia microti DNA PCR B. pertussis DNA (PCR) B.parapertussis DNA PCR Lyme Disease IgG Ab Lyme Disease IgM Ab C. pneumoniae DNA (PCR) Coronavirus OC43 (PCR) Coronavirus HKU1 (PCR) Coronavirus 229E (PCR) SARS-CoV-2 (PCR) Coronavirus NL63 (PCR) E.chaffeensis DNA (PCR) Human Metapneumovir PCR Influenza Type A (PCR) Influenza Type B (PCR) M. pneumoniae (PCR) Parainfluenza 1 (PCR) Parainfluenza 2 (PCR) Parainfluenza 3 (PCR) Parainfluenza 4 (PCR) Q Fever Phase I IgG Ab Q Fever Phase I IgM Ab Q Fever Phase II IgG Ab Q Fever Phase II IgM Ab RSV (PCR) Entero/Rhino (PCR) Rickettsia IgG Ab Rickettsia IgM Ab Typhus Fever IgG Ab Typhus Fever IgM Ab 12/06/22 12/06/22 12/06/22 19:01 19:01 19:01 WBC RBC Hgb Hct MCV MCH MCHC RDW Std Deviation RDW Coeff of Gadiel Plt Count MPV Immature Gran % (Auto) Neut % (Auto) Lymph % (Auto) [place] % (Auto) Eos % (Auto) Baso % (Auto) Neut # (Auto) Lymph # (Auto) [place] # (Auto) Eos # (Auto) Baso # (Auto) Immature Gran # (Auto) Peripher Smr Path Cons ESR PT INR APTT PTT Ratio Sodium Potassium Chloride Carbon Dioxide Anion Gap BUN Creatinine Est Cr Clr Drug Dosing Est GFR ( Amer) Est GFR (Non-Af Amer) BUN/Creatinine Ratio Glucose Osmolality Calcium Magnesium Total Bilirubin AST ALT Alkaline Phosphatase Troponin I High Sens C-Reactive Protein Total Protein Albumin Globulin Albumin/Globulin Ratio Procalcitonin 1.14 H TSH Random Cortisol Urine Color Urine Appearance Urine pH Ur Specific [place] Urine Protein Urine Glucose (UA) Urine Ketones Urine Blood Urine Nitrite Urine Bilirubin Urine Urobilinogen Ur Leukocyte Esterase Urine WBC (Auto) Urine RBC (Auto) U Hyaline Cast (Auto) U Epithel Cells (Auto) Urine Bacteria (Auto) Urine Osmolality Ur Random Sodium Adenovirus (PCR) Anaplasma Smear A. phagocytophilum DNA Anaplasma Comment Babesia Smear Babesia microti DNA PCR Pending B. pertussis DNA (PCR) B.parapertussis DNA PCR Lyme Disease IgG Ab Negative Lyme Disease IgM Ab Negative C. pneumoniae DNA (PCR) Coronavirus OC43 (PCR) Coronavirus HKU1 (PCR) Coronavirus 229E (PCR) SARS-CoV-2 (PCR) Coronavirus NL63 (PCR) E.chaffeensis DNA (PCR) Pending Human Metapneumovir PCR Influenza Type A (PCR) Influenza Type B (PCR) M. pneumoniae (PCR) Parainfluenza 1 (PCR) Parainfluenza 2 (PCR) Parainfluenza 3 (PCR) Parainfluenza 4 (PCR) Q Fever Phase I IgG Ab Pending Q Fever Phase I IgM Ab Pending Q Fever Phase II IgG Ab Pending Q Fever Phase II IgM Ab Pending RSV (PCR) Entero/Rhino (PCR) Rickettsia IgG Ab Pending Rickettsia IgM Ab Pending Typhus Fever IgG Ab Pending Typhus Fever IgM Ab Pending 12/06/22 12/06/22 12/07/22 19:01 23:43 09:26 WBC 3.71 L RBC 4.04 L Hgb 12.5 Hct 34.1 L MCV 84.4 MCH 30.9 MCHC 36.7 H RDW Std Deviation 34.9 L RDW Coeff of Gadiel 11.3 L Plt Count 77 L MPV 9.9 Immature Gran % (Auto) Neut % (Auto) Lymph % (Auto) [place] % (Auto) Eos % (Auto) Baso % (Auto) Neut # (Auto) Lymph # (Auto) [place] # (Auto) Eos # (Auto) Baso # (Auto) Immature Gran # (Auto) Peripher Smr Path Cons ESR PT INR APTT PTT Ratio Sodium 126 L Potassium Chloride Carbon Dioxide Anion Gap BUN Creatinine Est Cr Clr Drug Dosing Est GFR ( Amer) Est GFR (Non-Af Amer) BUN/Creatinine Ratio Glucose Osmolality Calcium Magnesium Total Bilirubin AST ALT Alkaline Phosphatase Troponin I High Sens C-Reactive Protein Total Protein Albumin Globulin Albumin/Globulin Ratio Procalcitonin TSH Random Cortisol Urine Color Urine Appearance Urine pH Ur Specific [place] Urine Protein Urine Glucose (UA) Urine Ketones Urine Blood Urine Nitrite Urine Bilirubin Urine Urobilinogen Ur Leukocyte Esterase Urine WBC (Auto) Urine RBC (Auto) U Hyaline Cast (Auto) U Epithel Cells (Auto) Urine Bacteria (Auto) Urine Osmolality Ur Random Sodium Adenovirus (PCR) Anaplasma Smear A. phagocytophilum DNA Cancelled Anaplasma Comment Babesia Smear Babesia microti DNA PCR B. pertussis DNA (PCR) B.parapertussis DNA PCR Lyme Disease IgG Ab Lyme Disease IgM Ab C. pneumoniae DNA (PCR) Coronavirus OC43 (PCR) Coronavirus HKU1 (PCR) Coronavirus 229E (PCR) SARS-CoV-2 (PCR) Coronavirus NL63 (PCR) E.chaffeensis DNA (PCR) Human Metapneumovir PCR Influenza Type A (PCR) Influenza Type B (PCR) M. pneumoniae (PCR) Parainfluenza 1 (PCR) Parainfluenza 2 (PCR) Parainfluenza 3 (PCR) Parainfluenza 4 (PCR) Q Fever Phase I IgG Ab Q Fever Phase I IgM Ab Q Fever Phase II IgG Ab Q Fever Phase II IgM Ab RSV (PCR) Entero/Rhino (PCR) Rickettsia IgG Ab Rickettsia IgM Ab Typhus Fever IgG Ab Typhus Fever IgM Ab 12/07/22 09:26 WBC RBC Hgb Hct MCV MCH MCHC RDW Std Deviation RDW Coeff of Gadiel Plt Count MPV Immature Gran % (Auto) Neut % (Auto) Lymph % (Auto) [place] % (Auto) Eos % (Auto) Baso % (Auto) Neut # (Auto) Lymph # (Auto) [place] # (Auto) Eos # (Auto) Baso # (Auto) Immature Gran # (Auto) Peripher Smr Path Cons ESR PT INR APTT PTT Ratio Sodium 128 L Potassium 3.3 L Chloride 97 L Carbon Dioxide 23 Anion Gap 8 BUN 11 Creatinine 0.45 L Est Cr Clr Drug Dosing 93.0 Est GFR ( Amer) 111.2 Est GFR (Non-Af Amer) 96.0 BUN/Creatinine Ratio 24.4 H Glucose 126 H Osmolality Calcium 7.9 L Magnesium 1.8 Total Bilirubin 0.5 AST 71 H ALT 60 H Alkaline Phosphatase 80 Troponin I High Sens C-Reactive Protein Total Protein 6.3 Albumin 3.4 Globulin 2.9 Albumin/Globulin Ratio 1.2 Procalcitonin TSH Random Cortisol Urine Color Urine Appearance Urine pH Ur Specific [place] Urine Protein Urine Glucose (UA) Urine Ketones Urine Blood Urine Nitrite Urine Bilirubin Urine Urobilinogen Ur Leukocyte Esterase Urine WBC (Auto) Urine RBC (Auto) U Hyaline Cast (Auto) U Epithel Cells (Auto) Urine Bacteria (Auto) Urine Osmolality Ur Random Sodium Adenovirus (PCR) Anaplasma Smear A. phagocytophilum DNA Anaplasma Comment Babesia Smear Babesia microti DNA PCR B. pertussis DNA (PCR) B.parapertussis DNA PCR Lyme Disease IgG Ab Lyme Disease IgM Ab C. pneumoniae DNA (PCR) Coronavirus OC43 (PCR) Coronavirus HKU1 (PCR) Coronavirus 229E (PCR) SARS-CoV-2 (PCR) Coronavirus NL63 (PCR) E.chaffeensis DNA (PCR) Human Metapneumovir PCR Influenza Type A (PCR) Influenza Type B (PCR) M. pneumoniae (PCR) Parainfluenza 1 (PCR) Parainfluenza 2 (PCR) Parainfluenza 3 (PCR) Parainfluenza 4 (PCR) Q Fever Phase I IgG Ab Q Fever Phase I IgM Ab Q Fever Phase II IgG Ab Q Fever Phase II IgM Ab RSV (PCR) Entero/Rhino (PCR) Rickettsia IgG Ab Rickettsia IgM Ab Typhus Fever IgG Ab Typhus Fever IgM Ab Diagnostic Findings CXR An AP, portable, upright. The heart is mildly enlarged. The pulmonary stature is noncongested. Nonspecific interstitial thickening is likely chronic. The lungs and pleural spaces are clear noting dependent atelectasis. No pneumothorax is seen. The skeletal structures are osteopenic. The bony thorax is grossly intact. IMPRESSION: No active disease in the chest. PG Care Time/CCT Total # of Minutes Spent Total Time Spent with Patient: Total time spent is greater than 50% in coordination of care (as documented) at patient's floor/unit and/or counseling patient: Coding Level of Care Code 51957 IN/OBS CONSULT LVL 4,60M Diagnoses Hyponatremia E87.1 Hypokalemia E87.6 Generalized weakness R53.1
[2022-12-07] MEDS: DOXYCYCLINE HYCLATE 100 MG CAP PO SCH ×2 (11:29→20:36)
[2022-12-07 15:02] LABS: Magnesium 1.8 mg/dl (1.7-2.4); Phosphorus 1.6 mg/dl (2.5-4.9); Potassium 3.7 mmol/L (3.5-5.1)
[2022-12-07] MEDS ORDERED: POTASSIUM PHOS 3 MMOL/1 ML INFUSION IV STA (15:37)
[2022-12-07] MEDS ORDERED: MAGNESIUM OXIDE 400 MG TAB PO STA (15:43)
[2022-12-07] MEDS ORDERED: MAGNESIUM OXIDE 400 MG TAB PO SCH (15:45)
[2022-12-07] MEDS ORDERED: POTASSIUM PHOSPHATE 30 MMOL in SODIUM CHLORIDE 0.9% 500 ML IV ONE (16:00)
--- NOTE | 2022-12-07 22:26 | Hospitalist Progress Note ---
Date of Service December 07, 2022 Assessment & Plan (1) Generalized weakness: Plan: -Admit to med/surge -The patient is currently afebrile, hemodynamically stable, and stable on RA -The patient started to develop generalized weakness and poor oral intake approximately 2 days ago -At this time the exact etiology of her generalized weakness is unclear but the differential includes but is not limited to acute hyponatremia, viral/bacterial infection, tick borne illness, dehydration -CXR was negative for signs of PNA, mild leukopenia at 4.37, lower suspicion for bacterial infection at this time but will obtain blood cultures, tick borne panels, procal, CRP, for further evaluation -TSH WNL, UA is equivocal at this time, but the patient is without dysuria or increased urinary frequency, not convinced she has a UTI at this time -We have no previous records so unsure how long her hyponatremia has been evolving, this is at least partly contributing to her weakness -Will hold additional abx at this time, follow additional workup and monitor for fever -BL SCD's for DVT PPX tonight, will hold chemical PPX tonight due to recent trauma -AM CBC, CMP, Mag, PT/INR Appears this could be multifactorial, hypophosphatemia may be playing a role as well as her hyponatremia. Patient also has anasplasmosis. Placed on doxycycline. will monitor her labs. (2) Hyponatremia: Plan: -Noted to be 125 today -Patient is not on diuretics and has been having poor oral intake over the past 3 days, likely due to poor oral intake -Serum osmolality, urine osmolality, and random urine sodium in process -S/P 1.5 L NSS in the ED, will hold additional IV fluids until the rest of her hyponatremia workup results -For now will start a free water restriction and 1800 mL fluid restriction -sodium improving on 12/07, appreciate input from nephro. (3) Fall: Plan: -The patient fell out of bed this am trying to reach for juice, she did hit her head but did not lose consciousness, is not on AC -No other acute trauma on exam -Fall precautions and PT/OT conuslts ordered (4) Thrombocytopenia: Plan: -Noted to be 128 today -Does not appear to have a previous history -No signs of bleeding or non-traumatic bruising at this time -Continue to monitor admission workup and follow repeat CMP tomorrow (5) Hypokalemia: Plan: -Noted to be 3.3 today, no acute ECG changes -Mag at 2.0 -Likely due to poor oral intake -Ordered 2 bags of 10 meq IV KCL in the ED, about to be started -Monitor am potassium level (6) Elevated LFTs: Plan: -AST noted to be 52 today, no abd pain -Continue initial workup and monitor repeat CMP tomorrow (7) Bruise of face: Plan: -Sustained on fall this am -CT of the head is negative for acute trauma -No other acute trauma -PRN tylenol for pain Admission and Anticipated Discharge Date Admission Date: December 06, 2022 Subjective Patient reports feeling weak. PAtient has no new symptoms. Review of Systems Review of Systems: All systems reviewed & are unremarkable except as noted in HPI & below Physical Exam Physical Exam: General: In no acute distress, stated age, ill but non-toxic appearing HEENT: Normocephalic, patient with small bruises on the left cheek and right forehead, no scleral icterus, pupils around round, symmetrical, and reactive to light, dry mucus membranes, trachea midline, no thyromegaly Chest/Pulm: No respiratory distress, symmetrical chest expansion, clear breath sounds throughout Cardiac: RRR, no murmurs noted Abdomen: Negative for ascites and bruising, normoactive bowel sounds, soft, non- tender to palpation throughout Musculoskeletal: No tenderness to palpation over the skull, tenderness to palpation over the left maxillary sinus/cheek but no crepitus noted, no tenderness to palpation over the cervical, thoracic, or lumbar spine, upper and lower extremities with full ROM, no atrophy, spasticity, or flaccidity Extremities: Radial, dorsalis pedis, and posterior tibial pulses are intact and symmetrical, no edema noted in the BL LE's Skin: As described above Neuro: Alert and oriented to person, place, month, year, and president, no focal defects, CN II-XII tested and intact, no tremors noted Psych: No acute distress, calm and cooperative during the exam Results & Data Results & Data Vital Signs (Past 12 Hours) Vital Signs Temp Pulse Pulse Resp BP Pulse Ox O2 Del Method 12/07/22 19:00 37.3 C 89 18 151/90 H 93 Room Air 12/07/22 15:49 37.2 C 84 18 162/95 H 92 Room Air 12/07/22 15:37 92 H 12/07/22 11:16 37.6 C H 89 18 161/90 H 91 Room Air PG Care Time/CCT Total # of Minutes Spent Total Time Spent with Patient: Total time spent is greater than 50% in coordination of care (as documented) at patient's floor/unit and/or counseling patient: Coding Level of Care Code 50975 SUB INP/OBS CARE 2/35MIN Diagnoses Generalized weakness R53.1 Hyponatremia E87.1 Fall W19.XXXA Thrombocytopenia D69.6 Hypokalemia E87.6 Elevated LFTs R79.89 Bruise of face S00.83XA Time Spent (min) 25
[2022-12-08 08:30] LABS: Albumin Globulin Ratio 1.1 (0.9-2); Albumin Level 3.4 gm/dl (3.4-5.0); BUN Creatinine Ratio 31.7 (10-20); Bilirubin,Total 0.5 mg/dl (0.2-1.0); Calcium 8.5 mg/dl (8.6-10.3); Creatinine Clr Calc Pharmacy 102.7 ml/min; Est GFR (African American) 114.7 ml/min; Magnesium 2.1 mg/dl (1.7-2.4); Phosphorus 2.3 mg/dl (2.5-4.9); Potassium 3.9 mmol/L (3.5-5.1); Total Protein 6.4 gm/dl (6.0-8.3)
[2022-12-08 08:35] LABS: Hematocrit (blood only) 34.5 % (37.0-47.0); Hemoglobin 12.5 g/dl (12.0-16.0); Mean Corpuscular Hemoglobin 30.4 pg (25.0-34.0); Mean Corpuscular Hgb Conc 36.2 g/dL (32.0-36.0); Mean Corpuscular Volume 83.9 fL (80.0-100.0); Mean Platelet Volume 11.2 fL (9.4-12.4); Platelet Count 66 K/uL (130-400); RDW Coefficient of Variation 11.6 % (11.5-14.5); RDW Standard Deviation 35.3 fL (36.4-46.3); Red Blood Count 4.11 M/uL (4.20-5.40); White Blood Count 3.45 K/ul (4.8-10.8)
[2022-12-08] MEDS: DOXYCYCLINE HYCLATE 100 MG CAP PO SCH ×2 (08:54→21:51)
[2022-12-08 09:10] LABS: Basophils # (auto) 0.03 K/uL (0-0.2); Basophils % (auto) 0.9 %; Immature Granulocytes # (auto) 0.01 K/uL (0.01-0.20); Immature Granulocytes % (auto) 0.3 %; Lymphocytes # (auto) 0.86 K/uL (1.2-3.4); Lymphocytes % (auto) 24.9 %; Monocytes # (auto) 0.28 K/uL (0.11-0.59); Monocytes % (auto) 8.1 %; Neutrophils # (auto) 2.27 K/uL (1.40-6.50); Neutrophils % (auto) 65.8 %
[2022-12-08] MEDS ORDERED: ERGOCALCIFEROL 50,000 UNITS 1250 MCG CAP PO ONE (09:31)
[2022-12-08] MEDS ORDERED: POTASSIUM PHOS 3 MMOL/1 ML INFUSION IV STA (09:32)
[2022-12-08] MEDS ORDERED: POTASSIUM PHOSPHATE 9 MMOL in SODIUM CHLORIDE 0.9% 250 ML IV ONE (10:00)
--- NOTE | 2022-12-08 13:50 | Nephrology Progress Note ---
Date of Service December 08, 2022 Assessment & Plan (1) Hyponatremia: Plan: Attributed to volume depletion and poor oral solute intake. Cannot exclude possible underlying component of SIADH. Urine osmolality improving with supportive care and improvement in volume status. Serum sodium improving. Encourage nutrition and particularly protein intake. Maintain free water restriction. Repeat metabolic profile tomorrow AM. IVF discontinued. Document strict I/O's. (2) Hypokalemia: Plan: Attributed to poor oral intake. Additional IV K phos replacement ordered this AM for persistent hypophosphatemia. For hypocalcemia and 25OH D deficiency, ergocalciferol 36355 units weekly started today. (3) Generalized weakness: Plan: Findings consistent with anaplasmosis. Tolerating treatment with doxycycline. Clinically improving. I discussed the plan of care with Dr. Pena this AM. Encourage out of bed and ambulating with PT. Potential discharge home anticipated for tomorrow. TSH and serum cortisol reassuring. Admission and Anticipated Discharge Date Admission Date: December 06, 2022 Subjective No acute events overnight. Whit feels well today. She reports some persistent fatigue. No fluid retention or edema. Appetite is good. Whit was out of bed with physical therapy. Activity tolerance acceptable. Reports reasonable strength climbing stairs. Review of Systems Review of Systems: All systems reviewed & are unremarkable except as noted in HPI & below Physical Exam Constitutional: well developed, + thin and + frail appearing; no acute distress Eyes: + anicteric sclerae; no corneal abnormality ENMT: Mouth: no oral mucosal abnormality and oral mucous membranes not dry Neck: normal visual inspection and trachea midline Respiratory: normal respiratory effort Auscultation: lungs clear to auscultation bilaterally Cardiovascular: Rate/Rhythm: regular rate Heart Sounds: normal S1 and normal S2 Extremities: no edema Musculoskeletal: Extremities: no cyanosis and no clubbing Skin: + turgor decreased and + jaundice Neurologic: Motor/Sensory: no tremor and no asterixis Psychiatric: Orientation: alert and oriented x 3 Results & Data Vital Signs (Past 12 Hours) Vital Signs Temp Pulse Pulse Resp BP Pulse Ox O2 Del Method 12/08/22 08:15 Room Air 12/08/22 08:07 36.7 C 79 20 154/96 H 93 Room Air 12/08/22 07:13 78 12/08/22 04:00 36.9 C 83 18 152/83 H 94 Room Air Laboratory Results Laboratory Results - last 24 hr 12/07/22 12/07/22 12/08/22 13:51 23:12 07:34 WBC 3.45 L RBC 4.11 L Hgb 12.5 Hct 34.5 L MCV 83.9 MCH 30.4 MCHC 36.2 H RDW Std Deviation 35.3 L RDW Coeff of Gadiel 11.6 Plt Count 66 L MPV 11.2 Immature Gran % (Auto) 0.3 Neut % (Auto) 65.8 Lymph % (Auto) 24.9 Woodruff % (Auto) 8.1 Eos % (Auto) 0.0 Baso % (Auto) 0.9 Neut # (Auto) 2.27 Lymph # (Auto) 0.86 L Woodruff # (Auto) 0.28 Eos # (Auto) 0.00 Baso # (Auto) 0.03 Immature Gran # (Auto) 0.01 Sodium 127 L 130 L Potassium 3.7 Chloride Carbon Dioxide Anion Gap BUN Creatinine Est Cr Clr Drug Dosing Est GFR ( Amer) Est GFR (Non-Af Amer) BUN/Creatinine Ratio Glucose Calcium Phosphorus 1.6 L Magnesium 1.8 Total Bilirubin AST ALT Alkaline Phosphatase Total Creatine Kinase Total Protein Albumin Globulin Albumin/Globulin Ratio 25-OH Vitamin D Total Urine Osmolality 12/08/22 12/08/22 12/08/22 07:34 07:34 11:05 WBC RBC Hgb Hct MCV MCH MCHC RDW Std Deviation RDW Coeff of Gadiel Plt Count MPV Immature Gran % (Auto) Neut % (Auto) Lymph % (Auto) Woodruff % (Auto) Eos % (Auto) Baso % (Auto) Neut # (Auto) Lymph # (Auto) Woodruff # (Auto) Eos # (Auto) Baso # (Auto) Immature Gran # (Auto) Sodium 132 L Potassium 3.9 Chloride 97 L Carbon Dioxide 26 Anion Gap 9 BUN 13 Creatinine 0.41 L Est Cr Clr Drug Dosing 102.7 Est GFR ( Amer) 114.7 Est GFR (Non-Af Amer) 99.0 BUN/Creatinine Ratio 31.7 H Glucose 76 Calcium 8.5 L Phosphorus 2.3 L Magnesium 2.1 Total Bilirubin 0.5 AST 77 H ALT 79 H Alkaline Phosphatase 85 Total Creatine Kinase 585 H Total Protein 6.4 Albumin 3.4 Globulin 3.0 Albumin/Globulin Ratio 1.1 25-OH Vitamin D Total 17.8 L Urine Osmolality 558 PG Care Time/CCT Total # of Minutes Spent Total Time Spent with Patient: Total time spent is greater than 50% in coordination of care (as documented) at patient's floor/unit and/or counseling patient: Coding Level of Care Code 78298 SUB INP/OBS CARE 3/50MIN Diagnoses Hyponatremia E87.1 Hypokalemia E87.6 Generalized weakness R53.1
--- NOTE | 2022-12-08 21:16 | Hospitalist Progress Note ---
Date of Service December 08, 2022 Assessment & Plan (1) Generalized weakness: Plan: -Admit to med/surge -The patient is currently afebrile, hemodynamically stable, and stable on RA -The patient started to develop generalized weakness and poor oral intake approximately 2 days ago -At this time the exact etiology of her generalized weakness is unclear but the differential includes but is not limited to acute hyponatremia, viral/bacterial infection, tick borne illness, dehydration -CXR was negative for signs of PNA, mild leukopenia at 4.37, lower suspicion for bacterial infection at this time but will obtain blood cultures, tick borne panels, procal, CRP, for further evaluation -TSH WNL, UA is equivocal at this time, but the patient is without dysuria or increased urinary frequency, not convinced she has a UTI at this time -We have no previous records so unsure how long her hyponatremia has been evolving, this is at least partly contributing to her weakness -Will hold additional abx at this time, follow additional workup and monitor for fever -BL SCD's for DVT PPX tonight, will hold chemical PPX tonight due to recent trauma -AM CBC, CMP, Mag, PT/INR Appears this could be multifactorial, hypophosphatemia may be playing a role as well as her hyponatremia. Patient also has anasplasmosis. Placed on doxycycline. will monitor her labs. She appears better on 12/08. will likley discharge in AM if labs appear stable. (2) Hyponatremia: Plan: -Noted to be 125 today -Patient is not on diuretics and has been having poor oral intake over the past 3 days, likely due to poor oral intake -Serum osmolality, urine osmolality, and random urine sodium in process -S/P 1.5 L NSS in the ED, will hold additional IV fluids until the rest of her hyponatremia workup results -For now will start a free water restriction and 1800 mL fluid restriction -sodium improving on 12/07, appreciate input from nephro. (3) Fall: Plan: -The patient fell out of bed this am trying to reach for juice, she did hit her head but did not lose consciousness, is not on AC -No other acute trauma on exam -Fall precautions and PT/OT conuslts ordered (4) Thrombocytopenia: Plan: -Noted to be 128 today -Does not appear to have a previous history -No signs of bleeding or non-traumatic bruising at this time -Continue to monitor admission workup and follow repeat CMP tomorrow (5) Hypokalemia: Plan: -Noted to be 3.3 today, no acute ECG changes -Mag at 2.0 -Likely due to poor oral intake -Ordered 2 bags of 10 meq IV KCL in the ED, about to be started -Monitor am potassium level (6) Elevated LFTs: Plan: -AST noted to be 52 today, no abd pain -Continue initial workup and monitor repeat CMP tomorrow (7) Bruise of face: Plan: -Sustained on fall this am -CT of the head is negative for acute trauma -No other acute trauma -PRN tylenol for pain Admission and Anticipated Discharge Date Admission Date: December 06, 2022 Subjective 77 yo female reports feeling better today. Less weak today. Review of Systems Review of Systems: All systems reviewed & are unremarkable except as noted in HPI & below Physical Exam Physical Exam: General: In no acute distress, stated age, ill but non-toxic appearing HEENT: Normocephalic, patient with small bruises on the left cheek and right forehead, no scleral icterus, pupils around round, symmetrical, and reactive to light, dry mucus membranes, trachea midline, no thyromegaly Chest/Pulm: No respiratory distress, symmetrical chest expansion, clear breath sounds throughout Cardiac: RRR, no murmurs noted Abdomen: Negative for ascites and bruising, normoactive bowel sounds, soft, non- tender to palpation throughout Musculoskeletal: No tenderness to palpation over the skull, tenderness to palpation over the left maxillary sinus/cheek but no crepitus noted, no tenderness to palpation over the cervical, thoracic, or lumbar spine, upper and lower extremities with full ROM, no atrophy, spasticity, or flaccidity Extremities: Radial, dorsalis pedis, and posterior tibial pulses are intact and symmetrical, no edema noted in the BL LE's Skin: As described above Neuro: Alert and oriented to person, place, month, year, and president, no focal defects, CN II-XII tested and intact, no tremors noted Psych: No acute distress, calm and cooperative during the exam Results & Data Results & Data Vital Signs (Past 12 Hours) Vital Signs Temp Pulse Pulse Resp BP Pulse Ox O2 Del Method 12/08/22 19:00 36.9 C 84 18 128/77 95 Room Air 12/08/22 16:22 37.1 C 83 18 163/98 H 96 Room Air 12/08/22 15:29 84 PG Care Time/CCT Total # of Minutes Spent Total Time Spent with Patient: Total time spent is greater than 50% in coordination of care (as documented) at patient's floor/unit and/or counseling patient: Coding Level of Care Code 82506 SUB INP/OBS CARE 2/35MIN Diagnoses Generalized weakness R53.1 Hyponatremia E87.1 Fall W19.XXXA Thrombocytopenia D69.6 Hypokalemia E87.6 Elevated LFTs R79.89 Bruise of face S00.83XA
[2022-12-09 07:41] LABS: Albumin Globulin Ratio 1.1 (0.9-2); Albumin Level 3.6 gm/dl (3.4-5.0); BUN Creatinine Ratio 32.6 (10-20); Bilirubin,Total 0.5 mg/dl (0.2-1.0); Calcium 8.8 mg/dl (8.6-10.3); Creatinine Clr Calc Pharmacy 96.9 ml/min; Est GFR (African American) 112.9 ml/min; Est GFR (Non-African American) 97.4 ml/min; Globulin 3.3 gm/dl (2.5-4.0); Magnesium 2.2 mg/dl (1.7-2.4); Phosphorus 2.1 mg/dl (2.5-4.9); Potassium 3.6 mmol/L (3.5-5.1); Total Protein 6.9 gm/dl (6.0-8.3)
[2022-12-09 08:17] LABS: Eosinophils # (manual) 0.11 K/uL (0-0.50); Eosinophils % (manual) 2 %; Hemoglobin 13.1 g/dl (12.0-16.0); Lymphocytes # (manual) 1.19 K/uL (1.2-3.4); Lymphocytes % (manual) 22 %; Mean Corpuscular Hemoglobin 30.4 pg (25.0-34.0); Mean Corpuscular Hgb Conc 35.4 g/dL (32.0-36.0); Mean Corpuscular Volume 85.8 fL (80.0-100.0); Mean Platelet Volume 10.9 fL (9.4-12.4); Monocytes # (manual) 0.54 K/uL (0.11-0.59); Monocytes % (manual) 10 %; Neutrophils % (manual) 50 %; Platelet Count 89 K/uL (130-400); RDW Coefficient of Variation 11.7 % (11.5-14.5); RDW Standard Deviation 36.8 fL (36.4-46.3); Reactive Lymphocytes # (manual) 0.92 K/uL; Reactive Lymphocytes % (manual) 17 %; Red Blood Count 4.31 M/uL (4.20-5.40); White Blood Count 5.39 K/ul (4.8-10.8)
[2022-12-09] MEDS: DOXYCYCLINE HYCLATE 100 MG CAP PO SCH (08:29)
--- NOTE | 2022-12-09 09:51 | Nephrology Progress Note ---
Date of Service December 09, 2022 Assessment & Plan (1) Hyponatremia: Plan: Attributed to volume depletion and poor oral solute intake. Possible underlying SIADH. Serum sodium improving. Encourage nutrition and particularly protein intake. Limit free water intake to 1.5 L/d. Repeat metabolic profile within 1 week of discharge. Follow up with me in the nephrology clinic within 2 weeks. (2) Hypokalemia: Plan: Attributed to poor oral intake. For hypocalcemia and 25OH D deficiency, ergocalciferol 86038 units weekly to be continued post discharge. (3) Generalized weakness: Plan: Findings consistent with anaplasmosis. Tolerating treatment with doxycycline. Clinically improving. TSH and serum cortisol reassuring. Admission and Anticipated Discharge Date Admission Date: December 06, 2022 Subjective No acute events overnight. Whit feels well this AM. Hopeful to be discharged home. Appetite is good. Review of Systems Review of Systems: All systems reviewed & are unremarkable except as noted in HPI & below Physical Exam Constitutional: well developed; no acute distress Eyes: + anicteric sclerae; no corneal abnormality ENMT: Mouth: + oral mucosal abnormality Neck: normal visual inspection and trachea midline Respiratory: normal respiratory effort Auscultation: lungs clear to auscultation bilaterally Cardiovascular: Rate/Rhythm: regular rate Heart Sounds: normal S1 and normal S2 Extremities: no edema Musculoskeletal: Extremities: no cyanosis and no clubbing Skin: + turgor decreased and + jaundice Neurologic: Motor/Sensory: no tremor and no asterixis Psychiatric: Orientation: alert and oriented x 3 Results & Data Vital Signs (Past 12 Hours) Vital Signs Temp Pulse Pulse Resp BP Pulse Ox O2 Del Method 12/09/22 08:30 Room Air 12/09/22 08:24 36.6 C 77 17 154/93 H 94 Room Air 12/09/22 07:07 78 12/09/22 04:00 36.6 C 80 18 136/90 94 Room Air 12/09/22 00:00 83 12/08/22 23:00 36.7 C 81 18 147/85 H 94 Room Air Laboratory Results Laboratory Results - last 24 hr 12/06/22 12/08/22 12/08/22 19:01 07:34 11:05 WBC RBC Hgb Hct MCV MCH MCHC RDW Std Deviation RDW Coeff of Gadiel Plt Count MPV Neutrophils % (Manual) Lymphocytes % (Manual) Reactive Lymphs % (Man) Monocytes % (Manual) Eosinophils % (Manual) Neutrophils # (Manual) Total Absolute Neuts Lymphocytes # (Manual) Reactive Lymphs # Total Abs Lymphocytes Monocytes # (Manual) Eosinophils # (Manual) Peripher Smr Path Cons Sodium Potassium Chloride Carbon Dioxide Anion Gap BUN Creatinine Est Cr Clr Drug Dosing Est GFR ( Amer) Est GFR (Non-Af Amer) BUN/Creatinine Ratio Glucose Calcium Phosphorus Magnesium Total Bilirubin AST ALT Alkaline Phosphatase Total Creatine Kinase 585 H Total Protein Albumin Globulin Albumin/Globulin Ratio Urine Osmolality 558 12/09/22 12/09/22 06:35 06:35 WBC 5.39 RBC 4.31 Hgb 13.1 Hct 37.0 MCV 85.8 MCH 30.4 MCHC 35.4 RDW Std Deviation 36.8 RDW Coeff of Gadiel 11.7 Plt Count 89 L MPV 10.9 Neutrophils % (Manual) 50 Lymphocytes % (Manual) 22 Reactive Lymphs % (Man) 17 Monocytes % (Manual) 10 Eosinophils % (Manual) 2 Neutrophils # (Manual) 2.70 Total Absolute Neuts 2.70 Lymphocytes # (Manual) 1.19 L Reactive Lymphs # 0.92 Total Abs Lymphocytes 2.10 Monocytes # (Manual) 0.54 Eosinophils # (Manual) 0.11 Peripher Smr Path Cons Sodium 135 L Potassium 3.6 Chloride 98 Carbon Dioxide 31 Anion Gap 6 BUN 14 Creatinine 0.43 L Est Cr Clr Drug Dosing 96.9 Est GFR ( Amer) 112.9 Est GFR (Non-Af Amer) 97.4 BUN/Creatinine Ratio 32.6 H Glucose 97 Calcium 8.8 Phosphorus 2.1 L Magnesium 2.2 Total Bilirubin 0.5 AST 54 H ALT 79 H Alkaline Phosphatase 92 Total Creatine Kinase Total Protein 6.9 Albumin 3.6 Globulin 3.3 Albumin/Globulin Ratio 1.1 Urine Osmolality PG Care Time/CCT Total # of Minutes Spent Total Time Spent with Patient: Total time spent is greater than 50% in coordination of care (as documented) at patient's floor/unit and/or counseling patient: Coding Level of Care Code 17508 SUB INP/OBS CARE 3/50MIN Diagnoses Hyponatremia E87.1 Hypokalemia E87.6 Generalized weakness R53.1
--- NOTE | 2022-12-09 15:08 | Discharge Summary ---
Date of Service December 09, 2022 Admission HPI Per Admitting Provider Whit is a 77 year old female with a PMH significant for vit D deficiency who presented to the [facility] ED on 12/06/22 with a complaints of generalized weakness, ambulatory dysfunction, and fall. In the ED the patient was noted to be afebrile, hemodynamically stable, and stable on RA. Labs were remarkable for a platelet count of 128, lymphocyte count of 0.27, sodium of 125, potassium of 3.3, chloride of 92, mag of 2.0, AST of 52, full respiratory biofire negative, and UA equivocal for infection. Prior to admission the patient was given 1.5 L NSS, a dose of Ceftriaxone, and was ordered 2 bags of IV KCL. At the time of the exam the patient was lying in bed in no acute distress with her sitting bedside, history was obtained from both. They state that the patient was in her normal state of health earlier in the week. They visited some friends in [facility] over the weekend, none of which had an acute illness. They came back home and she was doing well on Friday and Friday, they even went on a brisk 1 mile walk on Friday without issue. Starting on Friday the patient began to develop generalized weakness and poor appetite. She had has very little to eat over this time but was able to drink water consistently. Her states that he noticed she was more SOB with exertion, such as walking up steps over the past few days. This am the patient was lying in bed and attempted to reach for some juice on her bedside table, she accidentally rolled out of bed, hitting her left cheek and fight forehead. She denies losing consciousness and is not on anticoagulation. She was too weak to get herself up, her had to help her. She denies a previous history of electrolyte abnormalities and is on no prescription medications at this time. She denies noticing any insect bites recently. We discussed code status, she is a Full code and would want her (Collin Perez (C) [phone], (H) [phone]) to make medical decisions for her if she cannot make them herself. Please refer to Dr. Zuleta's attestation for any changes to the treatment plan. Discharge Exam General: In no acute distress, stated age, ill but non-toxic appearing HEENT: Normocephalic, patient with small bruises on the left cheek and right forehead, no scleral icterus, pupils around round, symmetrical, and reactive to light, dry mucus membranes, trachea midline, no thyromegaly Chest/Pulm: No respiratory distress, symmetrical chest expansion, clear breath sounds throughout Cardiac: RRR, no murmurs noted Abdomen: Negative for ascites and bruising, normoactive bowel sounds, soft, non- tender to palpation throughout Musculoskeletal: No tenderness to palpation over the skull, tenderness to palpation over the left maxillary sinus/cheek but no crepitus noted, no tenderness to palpation over the cervical, thoracic, or lumbar spine, upper and lower extremities with full ROM, no atrophy, spasticity, or flaccidity Extremities: Radial, dorsalis pedis, and posterior tibial pulses are intact and symmetrical, no edema noted in the BL LE's Skin: As described above Neuro: Alert and oriented to person, place, month, year, and president, no focal defects, CN II-XII tested and intact, no tremors noted Psych: No acute distress, calm and cooperative during the exam Discharge Data Allergies Allergy/AdvReac Type Severity Reaction Status Date / Time Sulfa (Sulfonamide AdvReac Severe TURNED THE Verified 12/06/22 17:48 Antibiotics) WHITES OF EYES YELLOW. Consultations 12/07/22 09:20 Consult Nephrology Routine Ordered Studies 12/06/22 13:33 CT head/brain wo con Stat Hospital Course (1) Generalized weakness: -Admit to med/surge -The patient is currently afebrile, hemodynamically stable, and stable on RA -The patient started to develop generalized weakness and poor oral intake approximately 2 days ago -At this time the exact etiology of her generalized weakness is unclear but the differential includes but is not limited to acute hyponatremia, viral/bacterial infection, tick borne illness, dehydration -CXR was negative for signs of PNA, mild leukopenia at 4.37, lower suspicion for bacterial infection at this time but will obtain blood cultures, tick borne panels, procal, CRP, for further evaluation -TSH WNL, UA is equivocal at this time, but the patient is without dysuria or increased urinary frequency, not convinced she has a UTI at this time -We have no previous records so unsure how long her hyponatremia has been evolving, this is at least partly contributing to her weakness -Will hold additional abx at this time, follow additional workup and monitor for fever -BL SCD's for DVT PPX tonight, will hold chemical PPX tonight due to recent trauma -AM CBC, CMP, Mag, PT/INR Appears this could be multifactorial, hypophosphatemia may be playing a role as well as her hyponatremia. Patient also has anasplasmosis. Placed on doxycycline. will monitor her labs. She appears better on 12/08. will likley discharge in AM if labs appear stable. (2) Hyponatremia: -Noted to be 125 today -Patient is not on diuretics and has been having poor oral intake over the past 3 days, likely due to poor oral intake -Serum osmolality, urine osmolality, and random urine sodium in process -S/P 1.5 L NSS in the ED, will hold additional IV fluids until the rest of her hyponatremia workup results -For now will start a free water restriction and 1800 mL fluid restriction -sodium improving on 12/07, appreciate input from nephro. (3) Fall: -The patient fell out of bed this am trying to reach for juice, she did hit her head but did not lose consciousness, is not on AC -No other acute trauma on exam -Fall precautions and PT/OT conuslts ordered (4) Thrombocytopenia: -Noted to be 128 today -Does not appear to have a previous history -No signs of bleeding or non-traumatic bruising at this time -Continue to monitor admission workup and follow repeat CMP tomorrow (5) Hypokalemia: -Noted to be 3.3 today, no acute ECG changes -Mag at 2.0 -Likely due to poor oral intake -Ordered 2 bags of 10 meq IV KCL in the ED, about to be started -Monitor am potassium level (6) Elevated LFTs: -AST noted to be 52 today, no abd pain -Continue initial workup and monitor repeat CMP tomorrow (7) Bruise of face: -Sustained on fall this am -CT of the head is negative for acute trauma -No other acute trauma -PRN tylenol for pain Discharge Plan Discharge Items Patient Disposition: Home - Self-Care Reason For Visit: GENERALIZED WEAKNESS, FALL Discharge Diagnosis: Generalized weakness Activity: Resume your previous activity Non-emergency contact: Primary Care Provider Call non-emergency contact if: you have any medication questions Follow-up/Referrals: João Cuevas [Primary Care Provider] - 12/30/22 1:05 pm Diet: Regular Fluids: 1500ml (6 cups) Addtl Attending Provider Instructions: Encourage nutrition and particularly protein intake. Limit free water intake to 1.5 L/d. Repeat metabolic profile within 1 week of discharge. Follow up with Dr. Lynn in the nephrology clinic within 2 weeks. Ergocalciferol 89034 units weekly to be continued post discharge. Pending Studies at Discharge: No Stand-Alone Forms: My [facility] [email or web address], Smoking Cessation Medications and DC Order Prescriptions: New doxycycline hyclate 100 mg Capsule 100 mg PO BID Qty: 16 0RF ergocalciferol (vitamin D2) 1,250 mcg (50,000 unit) capsule 50,000 unit PO .weekly Qty: 6 0RF Rx Instructions: Take this weekly Continued multivitamin Tablet 1 tab PO DAILY turmeric 400 mg Capsule 400 mg PO DAILY Discontinued calcium carbonate-vitamin D3 [Calcium 600 + D(3)] 600 mg-10 mcg (400 unit) Tablet 1 tab PO DAILY Discharge Orders: Discharge Order (Routine); Ordered 12/09/22 Ordered By: Fritz Pena Admission Data Admit Date/Time: 12/06/22 18:26 Attending Provider: Fritz Pena Admit Provider: Isai Zuleta Primary Care Provider: João Cuevas Other Providers: Adam Lynn Coding Diagnoses Generalized weakness R53.1 Hyponatremia E87.1 Fall W19.XXXA Thrombocytopenia D69.6 Hypokalemia E87.6 Elevated LFTs R79.89 Bruise of face S00.83XA
[2022-12-12 08:11] LABS: Ehrlichia chaff DNA Bld Negative (Negative)
== END 2022-12-09 16:26 | disposition home or self-care (01) | DRG 868 ==
LOC: ED 13:04 → SUATTDRO 18:26 → 2W 18:26